=== PATIENT | female | born 1955 | race Caucasian/White ===

== ENCOUNTER → 2016-09-28 | Outpatient (CLI) | payer BC ==
[~2016-09-28] MED LIST: ARM1 PO; ASCO-63 PO; ASPI-390 PO; ATV5 PO; CHOL2000 PO; FERROUS SULFATE PO; FRN PO; IBUP-1050 PO; LEVO88TA PO; MULT-663 PO; MULTCHW PO; POLYSOL4 OPB; PSYL55.43 PO; RIZA10TA19 PO
== END | disposition home or self-care (01) ==
LOC: C.PAPS 15:10
PROVIDERS: ATTEND Obstetrics & Gynecology
DX: Z01.419 Encounter for gynecological examination (general) (routine) without abnormal findings (principal)

== ENCOUNTER → 2016-11-04 | Outpatient (CLI) | payer BC ==
[2016-11-04 16:18] LABS: COMPLETE YES; EOS % 1.8 %; HEMATOCRIT 38.7 % (37-47); LYMPH % 30.2 %; LYMPH ABS # 1.48 K/uL (1.2-3.4); MEAN CELL VOLUME 92.4 fL (80-100); MEAN CORPUSCULAR HEMOGLOBIN 31.5 pg (25-34); MEAN CORPUSCULAR HGB CONC 34.1 g/dl (32-36); MEAN PLATELET VOLUME 9.1 fL (7.4-10.4); MONO % 5.9 %; NEUT % 62.1 %; PLATELET COUNT 172 K/uL (130-400); RED BLOOD COUNT 4.19 M/uL (4.2-5.4)
[2016-11-04 16:30] LABS: BLOOD UREA NITROGEN 19 mg/dl (7-18); BUN/CREATININE RATIO 27.2 (10-20); CALCIUM 8.5 mg/dl (8.5-10.1); CARBON DIOXIDE 32 mmol/L (21-32); CHLORIDE 106 mmol/L (98-107); CREATININE 0.68 mg/dl (0.60-1.20); GLUCOSE 85 mg/dl (70-99); POTASSIUM 3.7 mmol/L (3.5-5.1); SODIUM 143 mmol/L (136-145)
[2016-11-04 16:42] LABS: FERRITIN 40.7 ng/ml (8.0-388.0); TOTAL IRON BINDING CAPACITY 268 mcg/dl (250-450)
[2016-11-04 19:53] LABS: ESTIMATED AVERAGE GLUCOSE 111 mg/dl; HA1C FLAG Normal (Normal)
== END | disposition home or self-care (01) ==
LOC: C.LABBFT 12:34
PROVIDERS: ATTEND Internal Medicine
DX: Z11.59 Encounter for screening for other viral diseases (principal); M85.80 Other specified disorders of bone density and structure, unspecified site

== ENCOUNTER → 2016-11-10 | Outpatient (CLI) | payer BC | END | disposition home or self-care (01) | LOC: C.LAB 17:37 | PROVIDERS: ATTEND Internal Medicine | DX: M85.80 Other specified disorders of bone density and structure, unspecified site (principal) ==

== ENCOUNTER → 2017-05-10 | Outpatient (CLI) | payer BC ==
[~2017-05-10] MED LIST changes: -MULTCHW PO
[2017-05-10 12:24] LABS: COMPLETE YES; EOS % 0.5 %; HEMATOCRIT 37.8 % (37-47); IG% 0.2 %; LYMPH % 21.3 %; LYMPH ABS # 0.93 K/uL (1.2-3.4); MEAN CELL VOLUME 92.6 fL (80-100); MEAN CORPUSCULAR HEMOGLOBIN 31.6 pg (25-34); MEAN CORPUSCULAR HGB CONC 34.1 g/dl (32-36); MEAN PLATELET VOLUME 8.9 fL (7.4-10.4); MONO % 5.3 %; NEUT % 72.7 %; PLATELET COUNT 169 K/uL (130-400); RED BLOOD COUNT 4.08 M/uL (4.2-5.4); WHITE BLOOD COUNT 4.37 K/uL (4.8-10.8)
[2017-05-10 12:51] LABS: CHOLESTEROL/HDL RATIO 2.6; THYROID STIMULATING HORMONE 1.51 uIu/ml (0.300-4.500)
== END | disposition home or self-care (01) ==
LOC: C.LAB1850 10:46
PROVIDERS: ATTEND Internal Medicine
DX: M85.80 Other specified disorders of bone density and structure, unspecified site (principal)

== ENCOUNTER → 2017-09-29 | Outpatient (CLI) | payer BC | END | disposition home or self-care (01) | LOC: C.PAPS 11:52 | PROVIDERS: ATTEND Obstetrics & Gynecology | DX: Z01.419 Encounter for gynecological examination (general) (routine) without abnormal findings (principal); R87.615 Unsatisfactory cytologic smear of cervix ==

== ENCOUNTER → 2018-01-19 | Outpatient (CLI) | payer BC ==
[~2018-01-19] MED LIST changes: -MULT-663 PO
== END | disposition home or self-care (01) ==
LOC: C.PAPS 13:22
PROVIDERS: ATTEND Obstetrics & Gynecology
DX: R87.615 Unsatisfactory cytologic smear of cervix (principal); N95.8 Other specified menopausal and perimenopausal disorders

== ENCOUNTER 2019-04-05 23:56 | Inpatient (IN) ==
[2019-04-06] MEDS ORDERED: MoRPHine SULFATE 4 MG/ML 1 ML CARP\\VIAL IV STA (00:20)
[2019-04-06] MEDS ORDERED: ONDANSETRON INJ 2 MG/ML 2 ML VIAL IV STA (00:20)
[2019-04-06 00:27] LABS: Basophils # (auto) 0.01 K/uL (0-0.2); Basophils % (auto) 0.1 %; Eosinophils # (auto) 0.12 K/uL (0-0.5); Eosinophils % (auto) 1.2 %; Hematocrit (blood only) 38.9 % (37-47); Hemoglobin 13.5 g/dL (12.0-16.0); Immature Granulocytes # (auto) 0.02 K/uL (0.00-0.02); Immature Granulocytes % (auto) 0.2 %; Lymphocytes # (auto) 1.48 K/uL (1.2-3.4); Lymphocytes % (auto) 14.3 %; Mean Corpuscular Hemoglobin 32.1 pg (25-34); Mean Corpuscular Hgb Conc 34.7 g/dL (32-36); Mean Corpuscular Volume 92.4 fL (80-100); Mean Platelet Volume 8.7 fL (7.4-10.4); Monocytes # (auto) 0.58 K/uL (0.11-0.59); Monocytes % (auto) 5.6 %; Neutrophils # (auto) 8.14 K/uL (1.4-6.5); Neutrophils % (auto) 78.6 %; Platelet Count 168 K/uL (130-400); RDW Coefficient of Variation 12.7 % (11.5-14.5); RDW Standard Deviation 42.8 fL (36.4-46.3); Red Blood Count 4.21 M/uL (4.2-5.4); White Blood Count 10.35 K/uL (4.8-10.8)
[2019-04-06] MEDS ORDERED: SODIUM CHLORIDE 0.9% 1000ML 1,000 ML IV SCH (00:30)
--- NOTE | 2019-04-06 00:51 | Emergency Department Note ---
History of Present Illness General Chief complaint: Abdominal Pain Stated complaint: UPPER ABD PAIN SINCE 21:00 THIS EVENING Time Seen by Provider: 04/06/19 00:11 History of Present Illness Maximum Pain Intensity: 7 This is a 63-year-old female with a pertinent past medical history for that of breast cancer, that presents to the emergency department via private vehicle accompanied by with complaints of "upper abdominal pain". The patient notes that around 7:30 PM she ate dinner, and then around 8:30 PM began with epigastric discomfort". She has never had pain quite like this before. No history of abdominal surgeries. She notes that on the way here she did vomit x1. She rates the pain as a 7/10. No alleviating factors. It is persistent. Home Medications Home Medications Medication Instructions Recorded Confirmed Type anastrozole 1 mg tablet 1 mg PO DAILY 01/24/19 04/06/19 History ascorbic acid (vitamin C) 500 mg 500 mg PO DAILY cap 01/24/19 04/06/19 History capsule cholecalciferol (vitamin D3) 2,000 2,000 units PO DAILY cap 01/24/19 04/06/19 History unit capsule levothyroxine 88 mcg tablet 88 mcg PO DAILY #90 tab 01/24/19 04/06/19 History polysaccharide iron complex 150 mg 150 mg PO AMPM #60 cap 01/24/19 04/06/19 History iron capsule rizatriptan 10 mg disintegrating 10 mg PO ONCE PRN #9 tab 01/24/19 04/06/19 History tablet zoledronic acid 5 mg/100 mL in 5 mg IV YEARLY #1 ml 01/24/19 04/06/19 History mannitol 5 %-water intravenous piggybck ghspgydazc-vnlhlgf-xbdzmbor 2 cap PO Q6 PRN 04/06/19 04/06/19 History calcium carbonate-vitamin D3 1 cap PO AMPM 04/06/19 04/06/19 History [Calcium 600 with Vitamin D3] lorazepam 1 mg PO HS PRN 04/06/19 04/06/19 History peg 400-propylene glycol (PF) 1 drp OPHTHALMIC (EYE) BID PRN 04/06/19 04/06/19 History [Systane (PF)] psyllium 1 packet PO DAILY 04/06/19 04/06/19 History Allergies Allergy/AdvReac Type Severity Reaction Status Date / Time codeine AdvReac Intermediate NAUSEA AND Verified 04/06/19 00:53 VOMITING Past Med/Surg History Medical History Anemia (Chronic) Anxiety (Chronic) Breast cancer (Chronic) Heart murmur (Chronic) Hypothyroidism (Chronic) Internal hemorrhoids (Chronic) Migraine headache (Chronic) Nontoxic multinodular goiter (Chronic) Osteopenia (Chronic) Cancer (Acute) Right breast Endocrine disorder (Acute) Thyroid disease (Acute) [place] teeth removed (Acute) Surgical History History of mastectomy (Acute) Axillary node removal History of vascular access device (Acute) Hx of breast biopsy (Acute) Social History Communication Ability: Effective Beliefs That Will Affect Care: None Current Living Situation: Spouse Other Information That Helps Us Care for You: No Feels Safe at Home: Yes Safety Concerns: Feels Safe At This Time Smoking Status: Never smoker Hx Alcohol Use: No Hx Substance Use: No Review of Systems A total of 10 systems reviewed and were otherwise negative Physical Exam Vital Signs Vital Signs - 24 hr 04/06/19 00:01 04/06/19 00:38 04/06/19 01:17 Temperature 36.8 C Temperature Source Oral Sepsis Recent Fever Within 48 Hours No Sepsis Action Taken by Nursing No Action Required Pulse Rate 93 H Pulse Rate [Finger] 78 84 Respiratory Rate 16 18 16 Respiratory Effort / Characteristics Non-Labored Accessory Muscle Use Respiratory Depth Normal Blood Pressure 172/82 H Blood Pressure [Left Arm] 145/74 H 139/60 Blood Pressure Mean 112 Blood Pressure Mean [Left Arm] 97 86 Blood Pressure Position Sitting Blood Pressure Position [Left Arm] Pulse Oximetry 97 99 97 Oxygen Delivery Method Room Air Room Air Room Air 04/06/19 02:55 04/06/19 03:15 Temperature Temperature Source Sepsis Recent Fever Within 48 Hours Sepsis Action Taken by Nursing Pulse Rate Pulse Rate [Finger] 86 96 H Respiratory Rate 16 18 Respiratory Effort / Characteristics Respiratory Depth Blood Pressure Blood Pressure [Left Arm] 141/76 H 165/85 H Blood Pressure Mean Blood Pressure Mean [Left Arm] 97 111 Blood Pressure Position Blood Pressure Position [Left Arm] Sitting Sitting Pulse Oximetry 96 97 Oxygen Delivery Method Room Air Room Air VITAL SIGNS - Vital signs and nursing notes were reviewed. Stable and afebrile. GENERAL -63-year-old female appearing her stated age who is in no acute distress. Communicates well with provider and answers questions appropriately. SKIN - Without rashes. No meningeal or petechial rash. HEAD - NC/AT. EYES - PERRL with EOMI bilaterally. Sclera anicteric. EARS - No deformities of external structures noted on gross examination bilaterally. NOSE - Midline and without cyanosis. No epistaxis or purulent drainage noted. MOUTH/OROPHARYNX - Without perioral cyanosis. NECK - Neck with FROM.No nuchal rigidity. LUNGS - Chest wall symmetric without accessory muscle use, intercostals retractions, or central cyanosis. Normal vesicular breath sounds CTA B/L. No whe ezes, rales, or rhonchi appreciated. CARDIAC - RRR with S1/S2. No murmur, rubs, or gallops appreciated. ABDOMEN - Abdominal contour normal without pulsations or visible masses. BS normoactive all four quadrants. There is epigastric abdominal tenderness to examination with palpation. No palpable masses, hepatosplenomegaly, or ascites noted. EXTREMITIES - No clubbing or peripheral cyanosis. No pretibial edema present. +5/5 strength noted in UE/LE bilaterally. NEUROLOGIC - Cranial nerves II through XII grossly intact. PSYCH - A&O and cooperates fully with examiner. Pt is very pleasant and int eracts well with examiner. Course Administered Medications Lactated Ringer's (Lr) 1,000 mls @ 125 mls/hr IV .Q8H POLLO Stop: 05/06/19 04:51 Last Infusion: 04/06/19 06:32 Dose: 125 mls/hr Documented by: [id number] Admin: 04/06/19 05:18 Dose: 125 mls/hr Documented by: [id number] Potassium Chloride (K Arnaldo / Wtr) 10 meq in 100 mls @ 100 mls/hr IV Q1H POLLO Stop: 04/06/19 08:51 Last Admin: 04/06/19 07:26 Dose: 100 mls/hr Documented by: [id number] Infusion: 04/06/19 07:20 Dose: 100 mls/hr Documented by: [id number] Admin: 04/06/19 06:20 Dose: 100 mls/hr Documented by: [id number] Infusion: 04/06/19 06:17 Dose: 100 mls/hr Documented by: [id number] Admin: 04/06/19 05:17 Dose: 100 mls/hr Documented by: [id number] Discontinued Medications Sodium Chloride (Nss 1000ml) 1,000 mls @ 999 mls/hr IV .Q1H1M POLLO Stop: 04/06/19 01:30 Last Infusion: 04/06/19 01:38 Dose: 0 mls/hr Documented by: [id number] Admin: 04/06/19 00:34 Dose: 999 mls/hr Documented by: [id number] Ioversol (Optiray 320 100ml) 93 ml IV ONCE PRN PRN Reason: Interaction Checking Stop: 04/10/19 02:17 Last Admin: 04/06/19 02:18 Dose: 93 ml Documented by: [id number] Morphine Sulfate (Morphine Sulfate) 4 mg IV NOW STA Stop: 04/06/19 00:21 Last Admin: 04/06/19 00:32 Dose: 4 mg Documented by: [id number] Morphine Sulfate (Morphine Sulfate) 2 mg IV NOW STA Stop: 04/06/19 02:20 Last Admin: 04/06/19 02:24 Dose: 2 mg Documented by: [id number] Ondansetron HCl (Zofran) 4 mg IV NOW STA Stop: 04/06/19 00:21 Last Admin: 04/06/19 00:32 Dose: 4 mg Documented by: [id number] Medical Decision Making Laboratory Data Result diagrams: 04/06/19 00:17 04/06/19 00:17 Lab Results 04/06/19 04/06/19 Range/Units 00:17 00:17 WBC 10.35 (4.8-10.8) K/uL RBC 4.21 (4.2-5.4) M/uL Hgb 13.5 (12.0-16.0) g/dL Hct 38.9 (37-47) % MCV 92.4 (80-100) fL MCH 32.1 (25-34) pg MCHC 34.7 (32-36) g/dL RDW Std Deviation 42.8 (36.4-46.3) fL RDW Coeff of Sammie 12.7 (11.5-14.5) % Plt Count 168 (130-400) K/uL MPV 8.7 (7.4-10.4) fL Immature Gran % (Auto) 0.2 % Neut % (Auto) 78.6 % Lymph % (Auto) 14.3 % [place] % (Auto) 5.6 % Eos % (Auto) 1.2 % Baso % (Auto) 0.1 % Immature Gran # (Auto) 0.02 (0.00-0.02) K/uL Neut # (Auto) 8.14 H (1.4-6.5) K/uL Lymph # (Auto) 1.48 (1.2-3.4) K/uL [place] # (Auto) 0.58 (0.11-0.59) K/uL Eos # (Auto) 0.12 (0-0.5) K/uL Baso # (Auto) 0.01 (0-0.2) K/uL Sodium 140 (136-145) mmol/L Potassium 3.3 L (3.5-5.1) mmol/L Chloride 104 (98-107) mmol/L Carbon Dioxide 31 (21-32) mmol/L Anion Gap 5.0 (3-11) BUN 24 H (7-18) mg/dl Creatinine 0.78 (0.6-1.2) mg/dl Est Cr Clr Drug Dosing 73.6 ml/min Est GFR ( Amer) 94.4 Est GFR (Non-Af Amer) 81.5 BUN/Creatinine Ratio 30.5 H (10-20) Glucose 131 H (70-99) mg/dl Calcium 9.3 (8.5-10.1) mg/dl Magnesium 2.2 (1.8-2.4) mg/dl Total Bilirubin 0.3 (0.2-1) mg/dl AST 11 L (15-37) U/L ALT 20 (12-78) U/L Alkaline Phosphatase 78 (45-117) U/L Total Protein 7.4 (6.4-8.2) gm/dl Albumin 3.9 (3.4-5.0) gm/dl Globulin 3.5 (2.5-4.0) gm/dl Albumin/Globulin Ratio 1.1 (0.9-2) Lipase 60 L (73-393) U/L Imaging Data Radiologist's Impression: US GALLBLADDER: Small amount of pericholecystic fluid. This is nonspecific given the otherwise unremarkable appearance of the gallbladder and absence of gallstones. No hydronephrosis. Multiple foci of hyperechogenicity and twinkling artifact within the right kidney measuring up to 4 mm, most consistent with kidney stones. Normal diameter of the common bile duct measuring 0.5 cm. Radiologist: Paulo Hernandez MD Study ready at 01:22 and initial results transmitted at 01:35 CT ABDOMEN & PELVIS With Contrast: Borderline dilated loops of fluid-filled small bowel measuring up to 2.7 cm involving the mid to distal small bowel with associated mesenteric edema sugge stive of partial or early complete small bowel obstruction. Normal appendix. Bony defect of the femoral head, possibly sequela of remote avascular necrosis.. Mild degenerative changes of the right greater than left hip. Multiple subcentimeter hypodensities in the right kidney too small to charact erize further but statistically likely represent simple cysts. Degenerative changes lumbar spine. Radiologist: Paulo Hernandez MD Study ready at 02:19 and initial results transmitted at 02:39 [facility] Narrative Patient was seen and evaluated as above in room B11. Review was performed of nursing notes and vital signs. After obtaining a thorough history and physical examination the above work up was performed. She presents to us today with epigastric abdominal discomfort. She has tenderness on exam in the epigastric region. Ultrasound was obtained of the gallbladder and was negative. IV access was established. She was given fluids, Zofran and morphine. She was reevaluated with tremendous improvement. CT scan was obtained and there is a small bowel obstruction. NG tube placed. She will be admitted for further ev aluation and management. Please refer to further documentation regarding her stay. CBC reveals no leukocytosis or anemia. Mild hypokalemia at 3.3. No other emergent metabolic disturbance. No evidence of UTI. In the evaluation and treatment of this patient, the following differential diagnoses were considered: ASC, AR, Pneumonia, GERD, Cholecystitis, Ascending Cholangitis, Cholydocholithiasis, Bowel Obstruction, PE, Amongst Others. Impression & Plan Small bowel obstruction, Abdominal pain Discharge Plan Visit Data *Final* Discharge Date/Time: 04/06/19 04:33 Chief Complaint: Abdominal Pain Stated Complaint: UPPER ABD PAIN SINCE 21:00 THIS EVENING ED Provider: Adalberto Sam ED Midlevel Provider: Romain Joseph Discharge Problem: Small bowel obstruction, Abdominal pain Patient Disposition: Admitted As Inpatient Condition: Good Discharge Instructions Interventions: ED Discharge Assessment Last Done: 04/06/19 04:33
[2019-04-06 00:53] LABS: Albumin Level 3.9 gm/dl (3.4-5.0); BUN Creatinine Ratio 30.5 (10-20); Calcium 9.3 mg/dl (8.5-10.1); Creatinine Clr Calc Pharmacy 73.6 ml/min; Est GFR (African American) 94.4; Est GFR (Non-African American) 81.5; Magnesium 2.2 mg/dl (1.8-2.4); Potassium 3.3 mmol/L (3.5-5.1)
[2019-04-06 00:54] LABS: Appearance Urine Clear (Clear); Bacteria Urine Automated Negative (Negative); Bilirubin Urine Negative (Negative); Blood Urine Negative (Negative); Color Urine Yellow; Epithelial Cell Urine Auto 20-30 /lpf (0-5); Glucose Urine UA Negative (Negative); Ketones Urine Trace (Negative); Leukocyte Esterase Urine Trace (Negative); Nitrite Urine Negative (Negative); RBC Urine Automated 0-4 /hpf (0-4); Specific Gravity Urine 1.026 (1.000-1.030); Urobilinogen Urine Negative (Negative); pH Urine >= 9.0 (4.5-7.5)
[2019-04-06 00:56] LABS: Albumin Globulin Ratio 1.1 (0.9-2); Bilirubin,Total 0.3 mg/dl (0.2-1); Globulin 3.5 gm/dl (2.5-4.0); Total Protein 7.4 gm/dl (6.4-8.2)
[2019-04-06 00:56] LABS: Protein Urine Negative (Negative); Sulfosalicylic Acid Urine Negative (Negative)
[2019-04-06] MEDS ORDERED: IOVERSOL 100ml IV PRN (02:18)
[2019-04-06] MEDS ORDERED: MoRPHine SULFATE 2 MG/ML CARP IV STA (02:19)
--- NOTE | 2019-04-06 03:28 | History & Physical Report ---
Date of Service April 06, 2019 Assessment & Plan (1) Small bowel obstruction: 63 year old woman with history of breast cancer here for one night of abdominal pain Small Bowel Obstruction CT with finding described above Non acute abdomen, no peritonitic signs, no fever, no elevated white count NG tube placed on low intermittent suction NPO Surgery consulted Dr. Kruse IV zofran, IV Tylenol, IV morphine and IV famotidine Patient comfortable at present, admitting for serial abdominal exams and supportive care for now In this patient with no history of abdominal surgery, no previous history of bowel obstruction, no opiate use, no other risk factors must be suspicious for malignancy though patient denies any history of chronic concerning symptoms (fatigue, weight loss, other GI symptoms) Hypothyroidism, migraines, Breast Cancer Holding home medications for now Will restart anastrozole, levothyroxine when obstruction relieved F/E/N: NPO, NG tube low intermittent suction DVT PPx: SCD's Dispo: Med Surg pending surgery consult and hopeful spontaneous resolution of symptoms (2) Abdominal pain: (3) Anemia: (4) Anxiety: (5) Breast cancer: (6) Hypothyroidism: (7) Migraine headache: History of Present Illness Chief Complaint: Abdominal Pain Primary Care Provider: Lonnie Maya MD Ms. West is a very pleasant 63 year old female with a past medical history of breast cancer, hypothyroidism, and osteopenia. She presents today for about 6 hours of abdominal pain following dinner. Patient had a meal around 7:30 regular meal for her fish sweet potatoes and carrots started to have a pain in upper abdomen about forty five minutes after her meal. It was a burning pain that she was not familiar with. Went upstairs to lay down took some mylanta didn't improve. Tried to move around and it was not improved. Oscillated in intensity from bad to worse. Had one episode vomiting when she got to the emergency department nothing previously. Had a small amount of water and two ounces of mylanta pain did not resolve. Presented to emergency department with . Vital signs stable throughout, initial labwork with no major abnormalities, slightly hypokalemic elevated BUN/Creatinine ratio. Initial concern was for Cholecystitis, RUQ ultrasound showed nonspecific pericholecystic fluid, Abdominal CT was then performed which showed evidence of a partial or early complete small bowel obstruction. Patient had an NG tube placed and was given morphine for pain. She is currently much more comfortable and we have been consulted to see her for admission. Patient had breast cancer in 2008, otherwise healthy, family history of colon cancer, she has colonoscopies every five years Had one benign polyp in the last colonoscopy. Anastrozole for ten years, finishes in June. Prescribed by Dr. Roche and Dr. Erika Aguirre in [place]. Patient occasionally gets constipation drinks metamucil every day, tries to eat high fiver cereal at breakfast. Has not been dealing with constipation recently, normal bowel function, no other concerning symptoms or recent illness. Allergies Allergy/AdvReac Type Severity Reaction Status Date / Time codeine AdvReac Intermediate NAUSEA AND Verified 04/06/19 00:53 VOMITING Home Medications Home Medications Medication Instructions Recorded Confirmed Type anastrozole 1 mg tablet 1 mg PO DAILY 01/24/19 04/06/19 History ascorbic acid (vitamin C) 500 mg 500 mg PO DAILY cap 01/24/19 04/06/19 History capsule cholecalciferol (vitamin D3) 2,000 2,000 units PO DAILY cap 01/24/19 04/06/19 History unit capsule levothyroxine 88 mcg tablet 88 mcg PO DAILY #90 tab 01/24/19 04/06/19 History polysaccharide iron complex 150 mg 150 mg PO AMPM #60 cap 01/24/19 04/06/19 History iron capsule rizatriptan 10 mg disintegrating 10 mg PO ONCE PRN #9 tab 01/24/19 04/06/19 History tablet zoledronic acid 5 mg/100 mL in 5 mg IV YEARLY #1 ml 01/24/19 04/06/19 History mannitol 5 %-water intravenous piggybck vzksmjccse-yobnesy-tmezqhnr 2 cap PO Q6 PRN 04/06/19 04/06/19 History calcium carbonate-vitamin D3 1 cap PO AMPM 04/06/19 04/06/19 History [Calcium 600 with Vitamin D3] lorazepam 1 mg PO HS PRN 04/06/19 04/06/19 History peg 400-propylene glycol (PF) 1 drp OPHTHALMIC (EYE) BID PRN 04/06/19 04/06/19 History [Systane (PF)] psyllium 1 packet PO DAILY 04/06/19 04/06/19 History Past Med/Surg History Medical History Anemia (Chronic) Anxiety (Chronic) Breast cancer (Chronic) Heart murmur (Chronic) Hypothyroidism (Chronic) Internal hemorrhoids (Chronic) Migraine headache (Chronic) Nontoxic multinodular goiter (Chronic) Osteopenia (Chronic) Cancer (Acute) Right breast Endocrine disorder (Acute) Thyroid disease (Acute) [place] teeth removed (Acute) Surgical History History of mastectomy (Acute) Axillary node removal History of vascular access device (Acute) Hx of breast biopsy (Acute) Social History Communication Ability: Effective Beliefs That Will Affect Care: None Current Living Situation: Spouse Other Information That Helps Us Care for You: No Feels Safe at Home: Yes Safety Concerns: Feels Safe At This Time Smoking Status: Never smoker Hx Alcohol Use: No Hx Substance Use: No Review of Systems Constitutional: no fever, no chills, no fatigue, no weakness, no anorexia and no weight loss Eyes: no problem reported Ear, Nose, Mouth, Throat: no problem reported Respiratory: no cough, no dyspnea and no wheezing Cardiovascular: no chest pain, no dyspnea, no palpitations, no lightheadedness, no syncope and no calf pain Gastrointestinal: + abdominal pain, + nausea and + vomiting; no coffee ground emesis, no hematemesis, no change in bowel habits, no blood in stools and no melena Physical Exam Physical Exam: Constitutional: 61-year-old woman appearing stated age in no apparent distress with NG tube in place communicating easily Eyes: Anicteric sclerae extraocular muscle movements intact bilaterally, pupils equal round reactive to light bilaterally ENMT: No abnormalities detected Neck supple no masses no lymph nodes palpable Respiratory: Chest expansion symmetric, lung sounds vesicular in all lung garcia, no wheezes rhonchi or rails Cardiovascular:Regular rate and rhythm, Heart sounds dual, no murmurs rubs skips or gallops, no lower limb edema GI: Epigastric abdominal tenderness, abdomen appears swollen and distended, pain is mild, no peritoneal signs, abdomen soft Skin: No abnormalities detected Results & Data Vital Signs (Past 12 Hours) Vital Signs Temp Pulse Pulse Resp BP BP Pulse Ox 04/06/19 03:15 96 H 18 165/85 H 97 04/06/19 02:55 86 16 141/76 H 96 04/06/19 01:17 84 16 139/60 97 04/06/19 00:38 78 18 145/74 H 99 04/06/19 00:01 36.8 C 93 H 16 172/82 H 97 RUQ US: Small amount of pericholecystic fluid, otherwise unremakrable CT abdomen/pelvis: BOrderline dilated loops of small bowel measuring up to two point seven cm involving the mid to distal small bowel with associated mesenteric edema suggestive of partial or early complete small bowel obstruction. Code Status & VTE Plan Code Status Full VTE Prophylaxis Plan VTE Prophylaxis will be ordered: Yes Reason for no VTE drug order: Contraindicated Supervising Physician Co-Signing Physician Notes Attending addendum: I have physically seen this patient, have supervised the medical residents activities, and agree with the H&P unless as otherwise noted. Assessment and Plan: Small Bowel Obstruction- Admit to medical surgical floor. NPO except meds. NGT to LIS. Zofran 4mg IV q6h prn famotidine 20mg IV q12h. Acetaminophen 1g IV q8h PRN mild pain or temp Morphine 1-2mg IV q4h prn. IVF's Consult General Surgery Dr. Kruse. Remainder of orders and notations as noted. PG Care Time/CCT Total # of Minutes Spent Total Time Spent with Patient: Total time spent is greater than 50% in coordination of care (as documented) at patient's floor/unit and/or counseling patient: Resident Activity Tracking Resident Involvement: Resident Care Provided Care Provided: Adult Hospital Medicine
[2019-04-06] MEDS ORDERED: ONDANSETRON INJ 2 MG/ML 2 ML VIAL IV PRN (04:52)
[2019-04-06] MEDS ORDERED: MoRPHine SULFATE 2 MG/ML CARP IV PRN (04:52)
[2019-04-06] MEDS: POTASSIUM CHLORIDE / WTR 10 MEQ/100 ML PLCT IV SCH ×4 (05:17→08:38)
[2019-04-06] MEDS: LACTATED RINGER'S 1,000 ML IV SCH ×3 (05:18→20:48)
--- NOTE | 2019-04-06 06:33 | Ultrasound Report ---
US gallbladder HISTORY: 63 years-old Female RUQ/epigastric abd pain acute right upper quadrant abdominal pain COMPARISON: CT abdomen and pelvis of same day TECHNIQUE: Multiple real-time sonographic images of the abdominal right upper quadrant were obtained assessing grayscale appearance and color flow FINDINGS: Visualized pancreas is unremarkable. The liver is within normal limits. No focal hepatic mass lesion or intrahepatic biliary ductal dilation. Trace layering gallbladder sludge without wall thickening, o r cholelithiasis. Nonspecific trace pericholecystic fluid. Normal common bile duct, 5 mm. Nonobstruct ing calculi of the right kidney measure up to 4 mm. IMPRESSION: 1. No cholelithiasis or gallbladder wall thickening. 2. Trace pericholecystic fluid is likely related to the small bowel findings described on CT abdomen and pelvis study of same day. 3. No biliary ductal dilation. 4. Nonobstructing right nephrolithiasis. The above report was generated using voice recognition software. It may contain grammatical, syntax o r spelling errors. Electronically signed by: Holden Rachel M.D. 04/06/2019 6:32 AM
--- NOTE | 2019-04-06 08:09 | CT Scan Report ---
ABDOMEN AND PELVIS CT WITH IV CONTRAST CT DOSE: 409.16 mGy.cm HISTORY: Acute generalized abdominal pain with history of breast cancer Upper abdominal pain TECHNIQUE: Multiaxial CT images of the abdomen and pelvis were performed following the IV administrat ion of 93 cc of Optiray 320, A dose lowering technique was utilized adhering to the principles of AL JAZMINE. COMPARISON STUDY: Right upper quadrant ultrasound of same day, chest CT 03/11/2009 FINDINGS: 11 x 7 mm partially imaged nodular density of the medial right lung base on image 1 series 3 is sugge stive of a probable lymph node and has mildly increased in size from comparison. Mild bibasilar atele ctasis. There is no pneumatosis or pneumoperitoneum. Imaged inferior cardiac chambers are mildly enla rged. Mild gallbladder distention without cholelithiasis. Liver, spleen, pancreas and adrenal glands appear unremarkable. There are a few subcentimeter hypodense foci of the kidneys suggestive of probable cys ts. No ureteral calculi or obstructive uropathy. Unremarkable urinary bladder. Uterus and adnexa are unremarkable. Multiple phleboliths of the pelvis. Aorta and IVC are within normal limits. There are several air and fluid-filled dilated and prominent loops of small bowel within the abdomen and pelvis measuring up to 2.6 cm transversely. No discrete transition point identified. Mild associa jaziel intraluminal edema with trace abdominal pelvic ascites. Moderate fecal retention. Air-filled ronna nflamed appearing appendix. Soft tissues are unremarkable. Subcortical cystic changes with possible r emote AVN of the right femoral head. Degenerative changes of the hips, pelvis and spine. No suspiciou s lytic or blastic bony lesions are identified. Ill-defined sclerosis of the left iliac bone is likel y benign. IMPRESSION: 1. Multiple dilated and prominent air and fluid-filled loops of small bowel throughout the abdomen an d pelvis without transition point identified is suggestive of low-grade small bowel obstruction with enteritis or ileus also in the differential. Close follow-up is needed. 2. Mild reactive mesenteric edema with trace abdominopelvic ascites. 3. No pneumatosis or pneumoperitoneum. 4. Moderate fecal retention. 5. Noninflamed appendix. Electronically signed by: Holden Rachel M.D. 04/06/2019 8:07 AM
[2019-04-06] MEDS ORDERED: INFLUENZA ADMINISTRATION CHARGE ONE (09:15)
[2019-04-06] MEDS ORDERED: INFLUENZA VIRUS QUAD VACCINE 0.5 ML SYR IM ONE (09:15)
[2019-04-06] MEDS: FAMOTIDINE 20 MG in SYRINGE 3 ML IV SCH ×2 (09:23→20:48)
--- NOTE | 2019-04-06 09:45 | History & Physical Bridge Note ---
Date of Service April 06, 2019 History & Physical Bridge Note I have examined the patient, reviewed the History & Physical and in the interval since the performance of the History & Physical I have noted the following changes of clinical significance: no changes noted Ms West denies any further nausea or abdominal pain though she is a bit tender to palpation but without guarding. She is afebrile. Passing gas, no bowel movement. She otherwise has no complaints. NG tube is in to LIS with small amount of output. Awaiting surgical consult. - continue NG until seen by surgery - pain control with morphine and IV acetaminophen - continue IV famotidine and LR
[2019-04-06] MEDS: ACETAMINOPHEN 1,000 MG/100 ML VIAL IV PRN (10:56)
[2019-04-06] MEDS ORDERED: BUTALBITAL/ASPIRIN/CAFFEINE 1 TAB TAB PO PRN (15:53)
[2019-04-06] MEDS ORDERED: RIZATRIPTAN BENZOATE MLT 10 MG TAB SL PRN (15:53)
[2019-04-06] MEDS ORDERED: PROMETHAZINE HCL 12.5 MG in SODIUM CHLORIDE 0.9% 50 ML IV ONE (16:00)
--- NOTE | 2019-04-06 17:42 | Surgery Consultation ---
Date of Consultation April 06, 2019 Assessment & Plan (1) Abdominal pain: I reviewed the patient's CT images as well as the report. Her history is more consistent with enteritis. There is diffuse small bowel dilatation with no transition point. That is more consistent with enteritis versus ileus. She is passing small amounts of flatus even today. I would continue the NG for now. Would continue with conservative measures. She has no evidence of peritonitis. There is no need for immediate surgical intervention. History of Present Illness Reason for Consultation: Abdominal pain nausea and vomiting Requesting Physician: Aurelio Grimes MD Attending Physician: Aurelio Grimes MD History of Present Illness I been asked by Dr. Grimes to see this 63-year-old female who presented to the emergency room with a complaint of abdominal pain with nausea and vomiting. The patient states that she ate fish with carrots and sweet potato last night at about 7:00 and 2 hours later developed pain centered mostly in the upper abdomen with no side predominating. It was a dull ache that was quite severe with occasional increases in intensity to a sharp character. She had never had pain like this before. She had no nausea or vomiting until she arrived in the e mergency room. She had no fever or chills. She is not sure if she had a bowel movement yesterday but she is sure that she had a normal bowel movement the day before. She is passing small amounts of flatus even today. She had no fever or chills. She has never had previous abdominal surgery. Allergies Allergy/AdvReac Type Severity Reaction Status Date / Time codeine AdvReac Intermediate NAUSEA AND Verified 04/06/19 00:53 VOMITING Home Medications Home Medications Medication Instructions Recorded Confirmed Type anastrozole 1 mg tablet 1 mg PO DAILY 01/24/19 04/06/19 History ascorbic acid (vitamin C) 500 mg 500 mg PO DAILY cap 01/24/19 04/06/19 History capsule cholecalciferol (vitamin D3) 2,000 2,000 units PO DAILY cap 01/24/19 04/06/19 History unit capsule levothyroxine 88 mcg tablet 88 mcg PO DAILY #90 tab 01/24/19 04/06/19 History polysaccharide iron complex 150 mg 150 mg PO AMPM #60 cap 01/24/19 04/06/19 History iron capsule rizatriptan 10 mg disintegrating 10 mg PO ONCE PRN #9 tab 01/24/19 04/06/19 History tablet zoledronic acid 5 mg/100 mL in 5 mg IV YEARLY #1 ml 01/24/19 04/06/19 History mannitol 5 %-water intravenous piggybck iaeqknqrqr-yoyfsby-qkaoltei 2 cap PO Q6 PRN 04/06/19 04/06/19 History calcium carbonate-vitamin D3 1 cap PO AMPM 04/06/19 04/06/19 History [Calcium 600 with Vitamin D3] lorazepam 1 mg PO HS PRN 04/06/19 04/06/19 History peg 400-propylene glycol (PF) 1 drp OPHTHALMIC (EYE) BID PRN 04/06/19 04/06/19 History [Systane (PF)] psyllium 1 packet PO DAILY 04/06/19 04/06/19 History Patient History Medical History Anemia (Chronic) Anxiety (Chronic) Breast cancer (Chronic) Heart murmur (Chronic) Hypothyroidism (Chronic) Internal hemorrhoids (Chronic) Migraine headache (Chronic) Nontoxic multinodular goiter (Chronic) Osteopenia (Chronic) Cancer (Acute) Right breast Endocrine disorder (Acute) Thyroid disease (Acute) [place] teeth removed (Acute) Surgical History History of mastectomy (Acute) Axillary node removal History of vascular access device (Acute) Hx of breast biopsy (Acute) Social History Communication Ability: Effective Beliefs That Will Affect Care: None Current Living Situation: Spouse Other Information That Helps Us Care for You: No Feels Safe at Home: Yes Safety Concerns: Feels Safe At This Time Smoking Status: Never smoker Hx Alcohol Use: No Hx Substance Use: No Review of Systems Review of Systems: All systems reviewed & are unremarkable except as noted in HPI & below Physical Exam Constitutional: no acute distress Neck: trachea midline Respiratory: normal respiratory effort, lungs clear to auscultation Cardiovascular: Rate/Rhythm: regular rate and regular rhythm Gastrointestinal (Abdomen): Inspection/Auscultation: abdomen not distended Percussion/Palpation: abdomen soft; abdomen nontender Bowel sounds normal pitch but decreased in amount Skin: no rashes, warm and dry Lymphatic: no cervical lymphadenopathy Results & Data Vital Signs (Past 12 Hours) Vital Signs Temp Pulse Resp BP Pulse Ox 04/06/19 15:04 37.3 C 90 16 156/76 H 98 04/06/19 11:37 37.1 C 94 H 18 143/72 H 96 04/06/19 07:34 37.1 C 78 18 137/72 99 Laboratory Results 04/06/19 04/06/19 04/06/19 Range/Units Unknown 00:17 00:17 WBC 10.35 (4.8-10.8) K/uL RBC 4.21 (4.2-5.4) M/uL Hgb 13.5 (12.0-16.0) g/dL Hct 38.9 (37-47) % MCV 92.4 (80-100) fL MCH 32.1 (25-34) pg MCHC 34.7 (32-36) g/dL RDW Std Deviation 42.8 (36.4-46.3) fL RDW Coeff of Sammie 12.7 (11.5-14.5) % Plt Count 168 (130-400) K/uL MPV 8.7 (7.4-10.4) fL Immature Gran % (Auto) 0.2 % Neut % (Auto) 78.6 % Lymph % (Auto) 14.3 % [place] % (Auto) 5.6 % Eos % (Auto) 1.2 % Baso % (Auto) 0.1 % Immature Gran # (Auto) 0.02 (0.00-0.02) K/uL Neut # (Auto) 8.14 H (1.4-6.5) K/uL Lymph # (Auto) 1.48 (1.2-3.4) K/uL [place] # (Auto) 0.58 (0.11-0.59) K/uL Eos # (Auto) 0.12 (0-0.5) K/uL Baso # (Auto) 0.01 (0-0.2) K/uL Sodium 140 (136-145) mmol/L Potassium 3.3 L (3.5-5.1) mmol/L Chloride 104 (98-107) mmol/L Carbon Dioxide 31 (21-32) mmol/L Anion Gap 5.0 (3-11) BUN 24 H (7-18) mg/dl Creatinine 0.78 (0.6-1.2) mg/dl Est Cr Clr Drug Dosing 73.6 ml/min Est GFR ( Amer) 94.4 Est GFR (Non-Af Amer) 81.5 BUN/Creatinine Ratio 30.5 H (10-20) Glucose 131 H (70-99) mg/dl Calcium 9.3 (8.5-10.1) mg/dl Magnesium 2.2 (1.8-2.4) mg/dl Total Bilirubin 0.3 (0.2-1) mg/dl AST 11 L (15-37) U/L ALT 20 (12-78) U/L Alkaline Phosphatase 78 (45-117) U/L Total Protein 7.4 (6.4-8.2) gm/dl Albumin 3.9 (3.4-5.0) gm/dl Globulin 3.5 (2.5-4.0) gm/dl Albumin/Globulin Ratio 1.1 (0.9-2) Lipase 60 L (73-393) U/L Urine Color Yellow Urine Appearance Clear (Clear) Urine pH >= 9.0 H (4.5-7.5) Ur Specific [place] 1.026 (1.000-1.030) Urine Protein Negative (Negative) Urine Glucose (UA) Negative (Negative) Urine Ketones Trace H (Negative) Urine Blood Negative (Negative) Urine Nitrite Negative (Negative) Urine Bilirubin Negative (Negative) Urine Urobilinogen Negative (Negative) Ur Leukocyte Esterase Trace H (Negative) Urine WBC (Auto) 1-5 (0-5) /hpf Urine RBC (Auto) 0-4 (0-4) /hpf U Hyaline Cast (Auto) 1-5 (0-5) /lpf U Epithel Cells (Auto) 20-30 H (0-5) /lpf Urine Bacteria (Auto) Negative (Negative) Diagnostic Findings US gallbladder HISTORY: 63 years-old Female RUQ/epigastric abd pain acute right upper quadrant abdominal pain COMPARISON: CT abdomen and pelvis of same day TECHNIQUE: Multiple real-time sonographic images of the abdominal right upper quadrant were obtained assessing grayscale appearance and color flow FINDINGS: Visualized pancreas is unremarkable. The liver is within normal limits. No focal hepatic mass lesion or intrahepatic biliary ductal dilation. Trace layering gallbladder sludge without wall thickening, or cholelithiasis. Nonspecific trace pericholecystic fluid. Normal common bile duct, 5 mm. Nonobstructing calculi of the right kidney measure up to 4 mm. IMPRESSION: 1. No cholelithiasis or gallbladder wall thickening. 2. Trace pericholecystic fluid is likely related to the small bowel findings described on CT abdomen and pelvis study of same day. 3. No biliary ductal dilation. 4. Nonobstructing right nephrolithiasis. ABDOMEN AND PELVIS CT WITH IV CONTRAST CT DOSE: 409.16 mGy.cm HISTORY: Acute generalized abdominal pain with history of breast cancer Upper abdominal pain TECHNIQUE: Multiaxial CT images of the abdomen and pelvis were performed following the IV administration of 93 cc of Optiray 320, A dose lowering technique was utilized adhering to the principles of ALARA. COMPARISON STUDY: Right upper quadrant ultrasound of same day, chest CT 03/11/2009 FINDINGS: 11 x 7 mm partially imaged nodular density of the medial right lung base on image 1 series 3 is suggestive of a probable lymph node and has mildly increased in size from comparison. Mild bibasilar atelectasis. There is no pneumatosis or pneumoperitoneum. Imaged inferior cardiac chambers are mildly enlarged. Mild gallbladder distention without cholelithiasis. Liver, spleen, pancreas and adrenal glands appear unremarkable. There are a few subcentimeter hypodense foci of the kidneys suggestive of probable cysts. No ureteral calculi or obstructive uropathy. Unremarkable urinary bladder. Uterus and adnexa are unremarkable. Multiple phleboliths of the pelvis. Aorta and IVC are within normal limits. There are several air and fluid-filled dilated and prominent loops of small bowel within the abdomen and pelvis measuring up to 2.6 cm transversely. No discrete transition point identified. Mild associated intraluminal edema with trace abdominal pelvic ascites. Moderate fecal retention. Air-filled noninflamed appearing appendix. Soft tissues are unremarkable. Subcortical cystic changes with possible remote AVN of the right femoral head. Degenerative changes of the hips, pelvis and spine. No suspicious lytic or blastic bony lesions are identified. Ill-defined sclerosis of the left iliac bone is likely benign. IMPRESSION: 1. Multiple dilated and prominent air and fluid-filled loops of small bowel throughout the abdomen and pelvis without transition point identified is suggestive of low-grade small bowel obstruction with enteritis or ileus also in the differential. Close follow-up is needed. 2. Mild reactive mesenteric edema with trace abdominopelvic ascites. 3. No pneumatosis or pneumoperitoneum. 4. Moderate fecal retention. 5. Noninflamed appendix.
[2019-04-07] MEDS ORDERED: HEPARIN 100 UNIT/ML 5ML FLUSH FLUSH PRN (00:13)
[2019-04-07] MEDS: LACTATED RINGER'S 1,000 ML IV SCH ×3 (03:18→18:58)
[2019-04-07] MEDS: ACETAMINOPHEN 1,000 MG/100 ML VIAL IV PRN (05:01)
[2019-04-07 06:15] LABS: Basophils # (auto) 0.01 K/uL (0-0.2); Basophils % (auto) 0.1 %; Eosinophils # (auto) 0.02 K/uL (0-0.5); Eosinophils % (auto) 0.2 %; Hematocrit (blood only) 35.9 % (37-47); Hemoglobin 12.2 g/dL (12.0-16.0); Immature Granulocytes # (auto) 0.03 K/uL (0.00-0.02); Immature Granulocytes % (auto) 0.4 %; Lymphocytes # (auto) 1.53 K/uL (1.2-3.4); Lymphocytes % (auto) 18.5 %; Mean Corpuscular Hemoglobin 31.9 pg (25-34); Monocytes # (auto) 0.67 K/uL (0.11-0.59); Monocytes % (auto) 8.1 %; Neutrophils # (auto) 6.01 K/uL (1.4-6.5); Neutrophils % (auto) 72.7 %; Platelet Count 164 K/uL (130-400); RDW Coefficient of Variation 12.6 % (11.5-14.5); RDW Standard Deviation 43.5 fL (36.4-46.3); Red Blood Count 3.82 M/uL (4.2-5.4); White Blood Count 8.27 K/uL (4.8-10.8)
[2019-04-07 06:54] LABS: BUN Creatinine Ratio 13.9 (10-20); Calcium 8.4 mg/dl (8.5-10.1); Creatinine Clr Calc Pharmacy 89.3 ml/min; Est GFR (African American) 110.8; Est GFR (Non-African American) 95.6; Potassium 3.3 mmol/L (3.5-5.1)
[2019-04-07] MEDS: FAMOTIDINE 20 MG in SYRINGE 3 ML IV SCH ×2 (09:00→20:47)
--- NOTE | 2019-04-07 09:19 | Surgery Progress Note ---
Date of Service April 07, 2019 Assessment & Plan (1) Abdominal pain: Likely more of an enteritis/ileus than SBO now passing flatus and + hard fromed bowel movement CT scan with fecal load Plan: Discontinue NGT sips of clears, advised pt to go slow ambulate in hallway continue medical management may need to consider bowel regimen as patient states she has to take fiber daily to have bowel movement and hasn't taken in a while. Will see how she does without NGT prior to starting bowel regimen Dr. Kruse has seen and examined pt, agrees with above. Supervising Physician Co-Signing Physician Notes I interviewed and examined this patient I agree with the above note. She has begun to have bowel movements and is passing flatus. NG tube will be removed and she can start on sips of clear liquids Subjective feeling better today had bowel movement, hard formed and passing flatus no abdominal pain no n/v Physical Exam Constitutional: WD/WN, vitals as above no acute distress Gastrointestinal (Abdomen): Inspection/Auscultation: normal bowel sounds; abdomen not distended Percussion/Palpation: abdomen soft; abdomen nontender, no guarding and abdomen not rigid Skin: no rashes, warm and dry Psychiatric: A+Ox3, euthymic affect Results & Data Vital Signs (Past 12 Hours) Vital Signs Temp Pulse Resp BP Pulse Ox 04/07/19 07:28 37.2 C 04/07/19 07:22 38 C H 104 H 16 146/72 H 96 04/06/19 22:50 37.5 C 101 H 16 153/72 H 95 Laboratory Results 04/07/19 04/07/19 Range/Units 05:36 05:36 WBC 8.27 (4.8-10.8) K/uL RBC 3.82 L (4.2-5.4) M/uL Hgb 12.2 (12.0-16.0) g/dL Hct 35.9 L (37-47) % MCV 94.0 (80-100) fL MCH 31.9 (25-34) pg MCHC 34.0 (32-36) g/dL RDW Std Deviation 43.5 (36.4-46.3) fL RDW Coeff of Sammie 12.6 (11.5-14.5) % Plt Count 164 (130-400) K/uL MPV 9.0 (7.4-10.4) fL Immature Gran % (Auto) 0.4 % Neut % (Auto) 72.7 % Lymph % (Auto) 18.5 % [place] % (Auto) 8.1 % Eos % (Auto) 0.2 % Baso % (Auto) 0.1 % Immature Gran # (Auto) 0.03 H (0.00-0.02) K/uL Neut # (Auto) 6.01 (1.4-6.5) K/uL Lymph # (Auto) 1.53 (1.2-3.4) K/uL [place] # (Auto) 0.67 H (0.11-0.59) K/uL Eos # (Auto) 0.02 (0-0.5) K/uL Baso # (Auto) 0.01 (0-0.2) K/uL Sodium 141 (136-145) mmol/L Potassium 3.3 L (3.5-5.1) mmol/L Chloride 106 (98-107) mmol/L Carbon Dioxide 28 (21-32) mmol/L Anion Gap 7.0 (3-11) BUN 9 D (7-18) mg/dl Creatinine 0.64 (0.6-1.2) mg/dl Est Cr Clr Drug Dosing 89.3 ml/min Est GFR ( Amer) 110.8 Est GFR (Non-Af Amer) 95.6 BUN/Creatinine Ratio 13.9 (10-20) Glucose 102 H (70-99) mg/dl Calcium 8.4 L (8.5-10.1) mg/dl
--- NOTE | 2019-04-07 10:38 | Hospitalist Progress Note ---
Date of Service April 07, 2019 Assessment & Plan (1) Small bowel obstruction: Per surgery, CT findings more likely result of enteritis NG removed, patient to start on clear liquids BM over the night, nausea resolved Surgery consulted (2) Abdominal pain: resolved (3) Anxiety: Continue home lorazepam (4) Hypothyroidism: continue home levothyroxine (5) Migraine headache: improving from last night - received phenergan and morphine Home prn medications - rizatriptan, fiorinal, Excedrin (6) Breast cancer: Continue home anastrazole (7) DVT prophylaxis: ambulatory, SCDs, enoxaparin Subjective Ms. West is feeling better today, continues to have some headache which has improved but no further nausea. Throat is sore from the NG tube. Had a bowel movement this morning ROS Constitutional: no chills, aches, sweats or fever Respiratory: no sob,cough, sputum, or wheezing Cardiac: no chest pain, palpitations, edema, orthopnea or lightheadedness GI: no abdominal pain, nausea, vomiting, diarrhea or constipation : no dysuria or hesitancy Extremities: no joint pain or weakness Skin: no rash All other systems reviewed and negative Physical Exam Physical Exam: General: no distress Eyes: normal inspection, PERLL Respiratory: chest non tender, clear to auscultation, normal breath sounds, no respiratory distress, no accessory muscle use Cardiac: regular rate and rhythm, no rub or gallop, no murmur, no edema, no jvd GI/: active bowel sounds, no abd pain or tenderness, soft, non distended Extremities: normal range of motion, normal strength, non tender Neuro/Psych: alert and oriented x 3, normal mood and affect Skin: normal color, dry Results & Data Vital Signs (Past 12 Hours) Vital Signs Temp Pulse Resp BP Pulse Ox 04/07/19 07:28 37.2 C 04/07/19 07:22 38 C H 104 H 16 146/72 H 96 PG Care Time/CCT Total # of Minutes Spent Total Time Spent with Patient: Total time spent is greater than 50% in coordination of care (as documented) at patient's floor/unit and/or counseling patient:
[2019-04-07] MEDS: ENOXAPARIN INJ 40 MG/0.4 ML SYR SQ SCH (13:51)
[2019-04-08] MEDS: LACTATED RINGER'S 1,000 ML IV SCH ×3 (03:09→19:31)
[2019-04-08] MEDS: ENOXAPARIN INJ 40 MG/0.4 ML SYR SQ SCH (09:02)
[2019-04-08] MEDS: FAMOTIDINE 20 MG in SYRINGE 3 ML IV SCH ×2 (09:03→21:29)
[2019-04-08 09:06] LABS: Hematocrit (blood only) 34.2 % (37-47); Hemoglobin 11.5 g/dL (12.0-16.0); Mean Corpuscular Hemoglobin 31.5 pg (25-34); Mean Corpuscular Hgb Conc 33.6 g/dL (32-36); Mean Corpuscular Volume 93.7 fL (80-100); Mean Platelet Volume 8.5 fL (7.4-10.4); Platelet Count 144 K/uL (130-400); RDW Coefficient of Variation 12.5 % (11.5-14.5); RDW Standard Deviation 42.3 fL (36.4-46.3); Red Blood Count 3.65 M/uL (4.2-5.4); White Blood Count 5.11 K/uL (4.8-10.8)
[2019-04-08 09:34] LABS: BUN Creatinine Ratio 9.6 (10-20); Calcium 8.5 mg/dl (8.5-10.1); Creatinine Clr Calc Pharmacy 62.8 ml/min; Est GFR (African American) 78.4; Est GFR (Non-African American) 67.6; Potassium 3.1 mmol/L (3.5-5.1)
[2019-04-08] MEDS ORDERED: POTASSIUM CHLORIDE 20 MEQ TABCR PO STA (09:38)
--- NOTE | 2019-04-08 09:41 | Hospitalist Progress Note ---
Date of Service April 08, 2019 Assessment & Plan (1) Small bowel obstruction: * Resolving -- No pmhx sbo. + Diverticulosis without diverticulitis. --Admitted for possible SBO vs ileus vs enteritis * General Surgery consulted -- appreciate input -- per surgery, CT findings more likely result of enteritis * Patient tolerated clear liquid diet--> advanced to full liquid per surgical team * Possible d/c tomorrow (2) Abdominal pain: * resolved (3) Anxiety: * Continue home lorazepam 1mg QHS prn (4) Hypokalemia: * Potassium 3.1 today -- replaced with 40 MEQ KCl * Will continue to monitor (5) Hypothyroidism: * Resume home levothyroxine 88mcg * TSH 2.51 on 01/28 -- was 1.May * Rec repeat in 3 months-- consider increased dosage-- may be contributing to chronic constipation (6) Migraine headache: * Improved * Patient not requiring home triptan or excedrin at this time * Continue home meds prn (7) Breast cancer: * Continue home anastrazole (8) DVT prophylaxis: * Ambulation encouraged * SCDs, enoxaparin Dispo: possible discharge tomorrow Supervising Physician Co-Signing Physician Notes Attending Attestation: Chart reviewed in detail, care plan d/w KELIN Enrique. I agree w/ the suero components of her documentation. 63yo female with pSBO vs enteritis - clinically resolving with passage of copious flatus. Tolerating diet. Appreciate gen surg consult & recs. Vitals/labs remain acceptable. Cont conservative management. Lonnie Saldaña MD Subjective Patient evaluated this morning. She states she does not have any abdominal pain currently, except when someone presses on her stomach. She denies any nausea or vomiting, and was told by surgery that her diet would be advanced today and possible discharge tomorrow. She denies any fever or chills, but states it is difficult to discern due to continued hot flashes from her anastrazole. She denies any history of obstruction or personal history of colon cancer, but states her father from colon cancer. She gets colonoscopies every [address] Weller, and had a polyp removed during her last colonoscopy. Review of Systems Constitutional: no fever and no chills Eyes: no diplopia and no eye pain Ear, Nose, Mouth, Throat: no tinnitus and no dizziness Respiratory: no cough and no dyspnea Cardiovascular: no chest pain and no edema Gastrointestinal: + constipation (chronically takes metamucil at home); no nausea, no vomiting, no hematemesis and no diarrhea/loose stools Genitourinary: no dysuria and no urinary frequency Musculoskeletal: no stiffness and no body aches Integumentary: no rash and no lesions Neurologic: + headache(s) (slight headache this morning, better than yesterday); no dizziness Endocrine: hot flashes Physical Exam Constitutional: WD/WN, vitals as above Eyes: PERRL, conjunctivae normal, anicteric sclerae ENMT: external ear and nose normal, oropharynx normal Neck: trachea midline, no thyromegaly Respiratory: normal respiratory effort, lungs clear to auscultation Cardiovascular: RRR, no murmur, no edema Gastrointestinal (Abdomen): normal bowel sounds, soft, nontender, no hepa tosplenomegaly Percussion/Palpation: no guarding and abdomen not rigid Musculoskeletal: no cyanosis or clubbing, extremities motor strength 5/5 Skin: no rashes, warm and dry Neurologic: PERRL, EOMI, accommodation nl, no face palsy, no dysarthria Psychiatric: A+Ox3, euthymic affect Lymphatic: no lymphadenopathy Results & Data Vital Signs (Past 12 Hours) Vital Signs Temp Pulse Resp BP Pulse Ox 04/08/19 07:18 37.0 C 81 18 135/72 97 04/07/19 22:50 37 C 96 H 16 116/62 95 Laboratory Results 04/08/19 04/08/19 Range/Units 08:53 08:53 WBC 5.11 (4.8-10.8) K/uL RBC 3.65 L (4.2-5.4) M/uL Hgb 11.5 L (12.0-16.0) g/dL Hct 34.2 L (37-47) % MCV 93.7 (80-100) fL MCH 31.5 (25-34) pg MCHC 33.6 (32-36) g/dL RDW Std Deviation 42.3 (36.4-46.3) fL RDW Coeff of Sammie 12.5 (11.5-14.5) % Plt Count 144 (130-400) K/uL MPV 8.5 (7.4-10.4) fL Sodium 140 (136-145) mmol/L Potassium 3.1 L (3.5-5.1) mmol/L Chloride 107 (98-107) mmol/L Carbon Dioxide 28 (21-32) mmol/L Anion Gap 5.0 (3-11) BUN 9 (7-18) mg/dl Creatinine 0.91 (0.6-1.2) mg/dl Est Cr Clr Drug Dosing 62.8 ml/min Est GFR ( Amer) 78.4 Est GFR (Non-Af Amer) 67.6 BUN/Creatinine Ratio 9.6 L (10-20) Glucose 204 H (70-99) mg/dl Calcium 8.5 (8.5-10.1) mg/dl PG Care Time/CCT Total # of Minutes Spent Total Time Spent with Patient: Total time spent is greater than 50% in coordination of care (as documented) at patient's floor/unit and/or counseling patient:
--- NOTE | 2019-04-08 09:43 | Surgery Progress Note ---
Date of Service April 08, 2019 Assessment & Plan (1) Abdominal pain: Likely more of an enteritis/ileus than SBO bowel movement yesterday, continues to pass flatus CT scan with fecal load Plan: advance to full liquids ambulate in hallway continue medical management may need to consider bowel regimen as patient states she has to take fiber daily to have bowel movement and hasn't taken in a while. Dr. Kruse has seen and examined pt, agrees with above. Supervising Physician Co-Signing Physician Notes I interviewed and examined this patient I agree with the above note. The patient had evidence of a bowel obstruction but she is passing a lot of flatus. She tolerated clear liquids. Agree with advancing to full liquid diet. Subjective passing flatus, no bowel movement no nausea or vomiting ambulating hallway no abdominal pain Physical Exam Constitutional: WD/WN, vitals as above not ill appearing Gastrointestinal (Abdomen): Inspection/Auscultation: abdomen normal to inspection and normal bowel sounds; abdomen not distended Percussion/Palpation: abdomen soft; abdomen nontender, no guarding and abdomen not rigid Skin: no rashes, warm and dry Psychiatric: A+Ox3, euthymic affect Results & Data Vital Signs (Past 12 Hours) Vital Signs Temp Pulse Resp BP Pulse Ox 04/08/19 07:18 37.0 C 81 18 135/72 97 04/07/19 22:50 37 C 96 H 16 116/62 95 Laboratory Results 04/08/19 04/08/19 Range/Units 08:53 08:53 WBC 5.11 (4.8-10.8) K/uL RBC 3.65 L (4.2-5.4) M/uL Hgb 11.5 L (12.0-16.0) g/dL Hct 34.2 L (37-47) % MCV 93.7 (80-100) fL MCH 31.5 (25-34) pg MCHC 33.6 (32-36) g/dL RDW Std Deviation 42.3 (36.4-46.3) fL RDW Coeff of Sammie 12.5 (11.5-14.5) % Plt Count 144 (130-400) K/uL MPV 8.5 (7.4-10.4) fL Sodium 140 (136-145) mmol/L Potassium 3.1 L (3.5-5.1) mmol/L Chloride 107 (98-107) mmol/L Carbon Dioxide 28 (21-32) mmol/L Anion Gap 5.0 (3-11) BUN 9 (7-18) mg/dl Creatinine 0.91 (0.6-1.2) mg/dl Est Cr Clr Drug Dosing 62.8 ml/min Est GFR ( Amer) 78.4 Est GFR (Non-Af Amer) 67.6 BUN/Creatinine Ratio 9.6 L (10-20) Glucose 204 H (70-99) mg/dl Calcium 8.5 (8.5-10.1) mg/dl
[2019-04-08] MEDS ORDERED: LORazepam 1 MG TAB PO PRN (09:52)
[2019-04-08] MEDS ORDERED: ANASTRAZOLE 1 MG PO SCH (10:00)
[2019-04-08] MEDS ORDERED: ARTIFICIAL TEARS OP PRN (10:15)
[2019-04-08] MEDS: ANASTROZOLE 1 MG TAB PO SCH (11:13)
[2019-04-08] MEDS: IRON POLYSACCHARIDE COMPLEX 150 MG CAPSULE PO SCH ×2 (11:14→21:25)
[2019-04-08] MEDS: CALCIUM 600MG + VIT D 400 IU TAB PO SCH ×2 (11:15→21:25)
[2019-04-09] MEDS: LACTATED RINGER'S 1,000 ML IV SCH (03:33)
[2019-04-09 06:21] LABS: Hematocrit (blood only) 31.9 % (37-47); Hemoglobin 10.9 g/dL (12.0-16.0); Mean Corpuscular Hemoglobin 31.4 pg (25-34); Mean Corpuscular Hgb Conc 34.2 g/dL (32-36); Mean Corpuscular Volume 91.9 fL (80-100); Mean Platelet Volume 8.6 fL (7.4-10.4); Platelet Count 143 K/uL (130-400); RDW Coefficient of Variation 12.3 % (11.5-14.5); RDW Standard Deviation 41.6 fL (36.4-46.3); Red Blood Count 3.47 M/uL (4.2-5.4); White Blood Count 4.11 K/uL (4.8-10.8)
[2019-04-09] MEDS ORDERED: LEVOTHYROXINE SODIUM 88 MCG TABLET PO SCH ×2 (06:30)
[2019-04-09 06:54] LABS: Albumin Level 3.2 gm/dl (3.4-5.0); BUN Creatinine Ratio 8.8 (10-20); Calcium 8.7 mg/dl (8.5-10.1); Est GFR (African American) 108.7; Est GFR (Non-African American) 93.7; Potassium 3.3 mmol/L (3.5-5.1)
[2019-04-09 06:57] LABS: Albumin Globulin Ratio 1.2 (0.9-2); Bilirubin,Total 0.4 mg/dl (0.2-1); Globulin 2.7 gm/dl (2.5-4.0); Total Protein 5.9 gm/dl (6.4-8.2)
[2019-04-09] MEDS ORDERED: POTASSIUM CHLORIDE 20 MEQ TABCR PO STA (08:32)
[2019-04-09] MEDS: CALCIUM 600MG + VIT D 400 IU TAB PO SCH (08:50)
[2019-04-09] MEDS: ANASTROZOLE 1 MG TAB PO SCH (08:50)
[2019-04-09] MEDS: ENOXAPARIN INJ 40 MG/0.4 ML SYR SQ SCH (08:51)
[2019-04-09] MEDS: IRON POLYSACCHARIDE COMPLEX 150 MG CAPSULE PO SCH (08:51)
[2019-04-09] MEDS: FAMOTIDINE 20 MG in SYRINGE 3 ML IV SCH (08:55)
[2019-04-09] MEDS ORDERED: ASCORBIC ACID 500 MG TAB PO SCH (09:00)
[2019-04-09] MEDS ORDERED: PSYLLIUM 58.6% POWDER PACKET PO SCH (09:00)
[2019-04-09] MEDS ORDERED: CHOLECALCIFEROL 1,000 UNITS TAB PO SCH (09:00)
--- NOTE | 2019-04-09 09:05 | Surgery Progress Note ---
Date of Service April 09, 2019 Assessment & Plan (1) Abdominal pain: Likely more of an enteritis/ileus than SBO liquid bowel movements yesterday, continues to pass flatus CT scan with fecal load Plan: advance to soft diet today, if tolerates from surgical standpoint could be discharged home may need to consider bowel regimen other than fiber supplementation as patient states she has to take fiber daily to have soft bowel movement. Would recommend somewhat limited fiber diet in next 2 weeks given possible SBO and then advance fiber in diet as tolerated. Dr. Kruse has seen and examined pt, agrees with above. Subjective feeling good no abdominal pain no n/v liquid bowel movements yesterday x 2 tolerated full liquids Physical Exam Constitutional: WD/WN, vitals as above no acute distress Skin: no rashes, warm and dry Psychiatric: A+Ox3, euthymic affect Results & Data Vital Signs (Past 12 Hours) Vital Signs Temp Pulse Resp BP Pulse Ox 04/09/19 07:29 37.1 C 88 18 147/78 H 95 04/08/19 22:48 37.0 C 62 16 143/76 H 98 Laboratory Results 04/09/19 04/09/19 04/08/19 Range/Units 05:55 05:55 08:53 WBC 4.11 L (4.8-10.8) K/uL RBC 3.47 L (4.2-5.4) M/uL Hgb 10.9 L (12.0-16.0) g/dL Hct 31.9 L (37-47) % MCV 91.9 (80-100) fL MCH 31.4 (25-34) pg MCHC 34.2 (32-36) g/dL RDW Std Deviation 41.6 (36.4-46.3) fL RDW Coeff of Sammie 12.3 (11.5-14.5) % Plt Count 143 (130-400) K/uL MPV 8.6 (7.4-10.4) fL Sodium 142 140 (136-145) mmol/L Potassium 3.3 L 3.1 L (3.5-5.1) mmol/L Chloride 108 H 107 (98-107) mmol/L Carbon Dioxide 31 28 (21-32) mmol/L Anion Gap 3.0 5.0 (3-11) BUN 6 L 9 (7-18) mg/dl Creatinine 0.68 0.91 (0.6-1.2) mg/dl Est Cr Clr Drug Dosing 84.0 62.8 ml/min Est GFR ( Amer) 108.7 78.4 Est GFR (Non-Af Amer) 93.7 67.6 BUN/Creatinine Ratio 8.8 L 9.6 L (10-20) Glucose 105 H 204 H (70-99) mg/dl Calcium 8.7 8.5 (8.5-10.1) mg/dl Total Bilirubin 0.4 (0.2-1) mg/dl AST 11 L (15-37) U/L ALT 14 (12-78) U/L Alkaline Phosphatase 59 (45-117) U/L Total Protein 5.9 L (6.4-8.2) gm/dl Albumin 3.2 L (3.4-5.0) gm/dl Globulin 2.7 (2.5-4.0) gm/dl Albumin/Globulin Ratio 1.2 (0.9-2) 04/08/19 Range/Units 08:53 WBC 5.11 (4.8-10.8) K/uL RBC 3.65 L (4.2-5.4) M/uL Hgb 11.5 L (12.0-16.0) g/dL Hct 34.2 L (37-47) % MCV 93.7 (80-100) fL MCH 31.5 (25-34) pg MCHC 33.6 (32-36) g/dL RDW Std Deviation 42.3 (36.4-46.3) fL RDW Coeff of Sammie 12.5 (11.5-14.5) % Plt Count 144 (130-400) K/uL MPV 8.5 (7.4-10.4) fL Sodium (136-145) mmol/L Potassium (3.5-5.1) mmol/L Chloride (98-107) mmol/L Carbon Dioxide (21-32) mmol/L Anion Gap (3-11) BUN (7-18) mg/dl Creatinine (0.6-1.2) mg/dl Est Cr Clr Drug Dosing ml/min Est GFR ( Amer) Est GFR (Non-Af Amer) BUN/Creatinine Ratio (10-20) Glucose (70-99) mg/dl Calcium (8.5-10.1) mg/dl Total Bilirubin (0.2-1) mg/dl AST (15-37) U/L ALT (12-78) U/L Alkaline Phosphatase (45-117) U/L Total Protein (6.4-8.2) gm/dl Albumin (3.4-5.0) gm/dl Globulin (2.5-4.0) gm/dl Albumin/Globulin Ratio (0.9-2)
--- NOTE | 2019-04-09 09:09 | Hospitalist Progress Note ---
Date of Service April 09, 2019 Results & Data Vital Signs (Past 12 Hours) Vital Signs Temp Pulse Resp BP Pulse Ox 04/09/19 07:29 37.1 C 88 18 147/78 H 95 04/08/19 22:48 37.0 C 62 16 143/76 H 98 Laboratory Results 04/09/19 04/09/19 04/08/19 Range/Units 05:55 05:55 08:53 WBC 4.11 L (4.8-10.8) K/uL RBC 3.47 L (4.2-5.4) M/uL Hgb 10.9 L (12.0-16.0) g/dL Hct 31.9 L (37-47) % MCV 91.9 (80-100) fL MCH 31.4 (25-34) pg MCHC 34.2 (32-36) g/dL RDW Std Deviation 41.6 (36.4-46.3) fL RDW Coeff of Sammie 12.3 (11.5-14.5) % Plt Count 143 (130-400) K/uL MPV 8.6 (7.4-10.4) fL Sodium 142 140 (136-145) mmol/L Potassium 3.3 L 3.1 L (3.5-5.1) mmol/L Chloride 108 H 107 (98-107) mmol/L Carbon Dioxide 31 28 (21-32) mmol/L Anion Gap 3.0 5.0 (3-11) BUN 6 L 9 (7-18) mg/dl Creatinine 0.68 0.91 (0.6-1.2) mg/dl Est Cr Clr Drug Dosing 84.0 62.8 ml/min Est GFR ( Amer) 108.7 78.4 Est GFR (Non-Af Amer) 93.7 67.6 BUN/Creatinine Ratio 8.8 L 9.6 L (10-20) Glucose 105 H 204 H (70-99) mg/dl Calcium 8.7 8.5 (8.5-10.1) mg/dl Total Bilirubin 0.4 (0.2-1) mg/dl AST 11 L (15-37) U/L ALT 14 (12-78) U/L Alkaline Phosphatase 59 (45-117) U/L Total Protein 5.9 L (6.4-8.2) gm/dl Albumin 3.2 L (3.4-5.0) gm/dl Globulin 2.7 (2.5-4.0) gm/dl Albumin/Globulin Ratio 1.2 (0.9-2) PG Care Time/CCT Total # of Minutes Spent Total Time Spent with Patient: Total time spent is greater than 50% in coordination of care (as documented) at patient's floor/unit and/or counseling patient:
--- NOTE | 2019-04-09 16:58 | Discharge Summary ---
Date of Service April 09, 2019 Admission HPI Per Admitting Provider Ms. West is a very pleasant 63 year old female with a past medical history of breast cancer, hypothyroidism, and osteopenia. She presents today for about 6 hours of abdominal pain following dinner. Patient had a meal around 7:30 regular meal for her fish sweet potatoes and carrots started to have a pain in upper abdomen about forty five minutes after her meal. It was a burning pain that she was not familiar with. Went upstairs to lay down took some mylanta didn't improve. Tried to move around and it was not improved. Oscillated in intensity from bad to worse. Had one episode vomiting when she got to the emergency department nothing previously. Had a small amount of water and two ounces of mylanta pain did not resolve. Presented to emergency department with . Vital signs stable throughout, initial labwork with no major abnormalities, slightly hypokalemic elevated BUN/Creatinine ratio. Initial concern was for Cholecystitis, RUQ ultrasound showed nonspecific pericholecystic fluid, Abdominal CT was then performed which showed evidence of a partial or early complete small bowel obstruction. Patient had an NG tube placed and was given morphine for pain. She is currently much more comfortable and we have been consulted to see her for admission. Patient had breast cancer in 2008, otherwise healthy, family history of colon cancer, she has colonoscopies every five years Had one benign polyp in the last colonoscopy. Anastrozole for ten years, finishes in June. Prescribed by Dr. Roche and Dr. Erika Aguirre in [place]. Patient occasionally gets constipation drinks metamucil every day, tries to eat high fiver cereal at breakfast. Has not been dealing with constipation recently, normal bowel function, no other concerning symptoms or recent illness. Admission Exam Per Admitting Provider Constitutional: 61-year-old woman appearing stated age in no apparent distress with NG tube in place communicating easily Eyes: Anicteric sclerae extraocular muscle movements intact bilaterally, pupils equal round reactive to light bilaterally ENMT: No abnormalities detected Neck supple no masses no lymph nodes palpable Respiratory: Chest expansion symmetric, lung sounds vesicular in all lung garcia, no wheezes rhonchi or rails Cardiovascular:Regular rate and rhythm, Heart sounds dual, no murmurs rubs skips or gallops, no lower limb edema GI: Epigastric abdominal tenderness, abdomen appears swollen and distended, pain is mild, no peritoneal signs, abdomen soft Skin: No abnormalities detected Principal Diagnosis Enteritis Discharge Exam Constitutional WD/WN, vitals as above Eyes PERRL, conjunctivae normal, anicteric sclerae ENMT external ear and nose normal, oropharynx normal Neck trachea midline, no thyromegaly Respiratory normal respiratory effort, lungs clear to auscultation Cardiovascular RRR, no murmur, no edema Gastrointestinal (Abdomen) normal bowel sounds, soft, nontender, no hepatosplenomegaly Percussion/Palpation: no guarding and abdomen not rigid Musculoskeletal no cyanosis or clubbing, extremities motor strength 5/5 Skin no rashes, warm and dry Neurologic PERRL, EOMI, accommodation nl, no face palsy, no dysarthria Psychiatric A+Ox3, euthymic affect Lymphatic no lymphadenopathy Discharge Data Allergies Allergy/AdvReac Type Severity Reaction Status Date / Time codeine AdvReac Intermediate NAUSEA AND Verified 04/06/19 00:53 VOMITING Consultations 04/06/19 03:01 ED Decision to Admit Stat 04/06/19 04:52 Consult General Surgery Routine Ordered Studies 04/06/19 00:20 US gallbladder Urgent FINDINGS: Visualized pancreas is unremarkable. The liver is within normal limits. No focal hepatic mass lesion or intrahepatic biliary ductal dilation. Trace layering gallbladder sludge without wall thickening, or cholelithiasis. Nonspecific trace pericholecystic fluid. Normal common bile duct, 5 mm. Nonobstructing calculi of the right kidney measure up to 4 mm. IMPRESSION: 1. No cholelithiasis or gallbladder wall thickening. 2. Trace pericholecystic fluid is likely related to the small bowel findings described on CT abdomen and pelvis study of same day. 3. No biliary ductal dilation. 4. Nonobstructing right nephrolithiasis. 04/06/19 01:[address] WITH IV CONTRAST CT DOSE: 409.16 mGy.cm HISTORY: Acute generalized abdominal pain with history of breast cancer Upper abdominal pain TECHNIQUE: Multiaxial CT images of the abdomen and pelvis were performed following the IV administration of 93 cc of Optiray 320, A dose lowering technique was utilized adhering to the principles of ALARA. COMPARISON STUDY: Right upper quadrant ultrasound of same day, chest CT 03/11/2009 FINDINGS: 11 x 7 mm partially imaged nodular density of the medial right lung base on image 1 series 3 is suggestive of a probable lymph node and has mildly increased in size from comparison. Mild bibasilar atelectasis. There is no pneumatosis or pneumoperitoneum. Imaged inferior cardiac chambers are mildly enlarged. Mild gallbladder distention without cholelithiasis. Liver, spleen, pancreas and adrenal glands appear unremarkable. There are a few subcentimeter hypodense foci of the kidneys suggestive of probable cysts. No ureteral calculi or obstructive uropathy. Unremarkable urinary bladder. Uterus and adnexa are unremarkable. Multiple phleboliths of the pelvis. Aorta and IVC are within normal limits. There are several air and fluid-filled dilated and prominent loops of small bowel within the abdomen and pelvis measuring up to 2.6 cm transversely. No discrete transition point identified. Mild associated intraluminal edema with trace abdominal pelvic ascites. Moderate fecal retention. Air-filled noninflamed appearing appendix. Soft tissues are unremarkable. Subcortical cystic changes with possible remote AVN of the right femoral head. Degenerative changes of the hips, pelvis and spine. No suspicious lytic or blastic bony lesions are identified. Ill-defined sclerosis of the left iliac bone is likely benign. IMPRESSION: 1. Multiple dilated and prominent air and fluid-filled loops of small bowel throughout the abdomen and pelvis without transition point identified is suggestive of low-grade small bowel obstruction with enteritis or ileus also in the differential. Close follow-up is needed. 2. Mild reactive mesenteric edema with trace abdominopelvic ascites. 3. No pneumatosis or pneumoperitoneum. 4. Moderate fecal retention. 5. Noninflamed appendix. Hospital Course (1) Small bowel obstruction: * Resolving -- No pmhx sbo. + Diverticulosis without diverticulitis. Admitted for possible SBO vs ileus vs enteritis. General surgery consulted. Patient kept NPO, given IVF. * Per surgery, CT findings more likely result of enteritis. Patient diet advanced as tolerated. Low fiber diet. During admission, patient found to be hypokalemic. Given oral replacement and instructed to continue 20MEQ KCl until seen by PCP for repeat BMP. (2) Abdominal pain: * resolved (3) Anxiety: * Continue home lorazepam 1mg QHS prn (4) Hypokalemia: * Potassium found to be as low as 3.1. Replaced with 40 MEQ KCl. * Repeat labs continue to be mildly low, with continuance of 20 MEQ KCl. * Will need repeat BMP in the next 5-7 days at discretion of PCP (5) Hypothyroidism: * Continue home levothyroxine 88mcg * TSH 2.51 on 01/28 -- was 1.May * Rec repeat in 3 months-- consider increased dosage-- may be contributing to chronic constipation * Suggested low fiber diet x 2 week, possible addition of sorbitol or dulcolax for constipation (6) Migraine headache: * Resolved- had headache night of 04/06. Given phenergan and morphine as she was NPO. * Continue home meds prn (7) Breast cancer: * Continue home anastrazole (8) DVT prophylaxis: * Ambulation encouraged * SCDs, enoxaparin while inpatient Incidental finding on GB U/S: Nonobstructing calculi of the right kidney measure up to 4 mm. Total Time Total Time Spent Total Time Spent (In Minutes): 35 Discharge Plan Discharge Items Patient Disposition: Home - Self-Care Reason For Visit: ABDOMINAL PAIN/SBO Discharge Diagnosis: Enteritis Condition on Discharge: Good Activity: As commented below Activity Comment: Increase activity as tolerated Non-emergency contact: Primary Care Provider Call non-emergency contact if: you have any medication questions, your pain is not controlled and you have a fever Follow-up/Referrals: Lonnie Maya MD [Primary Care Provider] - Diet: Low Fiber Diet Comment: Limit fiber intake for next two weeks and then increase Addtl Attending Provider Instructions: You were hospitalized for enteritis/ileus. The original concern was for a small bowel obstruction, however the presentation and course are more suggestive of a viral enteritis, which means inflammation of your GI tract. It is recommended that you limit your fiber intake for the next two weeks to give your bowels rest. You may increase back to normal as tolerated after two weeks. During that time, it is suggested that for continued constipation, you may trial dulcolax or sorbital (the stuff they have in the diabetic candies we talked about) over the counter. Please also continue to stay well hydrated during this time. Your potassium was slightly low during this admission. Like discussed, it is not critically low, however a prescription for a daily potassium (20 MEQ) has been sent to your pharmacy. Please take one tablet daily until seen by Dr. Maya in the next week for repeat blood work (a BMP, or metabolic panel) to see if you will continue to need supplementation. Please report to the emergency room if you have worsening abdominal pain, fever, chills, nausea, vomiting or other symptoms that are concerning for you. It has been a pleasure being apart of your medical team during this hospitalization. Take care! One more suggestion is to continue to remain well hydrated. Pending Studies at Discharge: No Stand-Alone Forms: Call Back Authorization, My [facility], Smoking Cessation Medications and DC Order Prescriptions: New potassium chloride 20 mEq tablet extended release 20 meq PO DAILY 14 Days Qty: 14 RF: 0 Continued polysaccharide iron complex 150 mg iron capsule 150 mg PO AMPM Qty: 60 RF: 0 levothyroxine 88 mcg tablet 88 mcg PO DAILY Qty: 90 RF: 0 rizatriptan 10 mg tablet,disintegrating 10 mg PO ONCE PRN (Reason: migraine headache) Qty: 9 RF: 0 zoledronic juey-fsfseart-amucm 5 mg/100 mL piggyback 5 mg IV YEARLY Qty: 1 RF: 0 anastrozole [Arimidex] 1 mg tablet 1 mg PO DAILY RF: 0 ascorbic acid (vitamin C) 500 mg capsule 500 mg PO DAILY RF: 0 cholecalciferol (vitamin D3) 2,000 unit capsule 2,000 units PO DAILY RF: 0 calcium carbonate-vitamin D3 [Calcium 600 with Vitamin D3] 600 mg(1,500mg) - 500 unit Capsule 1 cap PO AMPM RF: 0 lorazepam 1 mg Tablet 1 mg PO HS PRN (Reason: Anxiety) RF: 0 ocjjnnzonh-ltflbxv-epykgazp 50-325-40 mg capsule 2 cap PO Q6 PRN (Reason: Headache) RF: 0 psyllium Packet 1 packet PO DAILY RF: 0 Systane (PF) 0.4-0.3 % Dropperette 1 drp OPHTHALMIC (EYE) BID PRN (Reason: Dry Eye(S)) RF: 0 Discharge Orders: Discharge Order (Routine); Ordered 04/09/19 Ordered By: Yaneli Enrique Admission Data Admit Date/Time: 04/06/19 04:02 Attending Provider: Lonnie Saldaña Admit Provider: Femi Anaya Primary Care Provider: Lonnie Maya Other Providers: Tom Black ; Aurelio Grimes ; Donald Brown Other Interventions: Discharge Summary Assessment (RN) Last Done: 04/09/19 16:08 DC Date/Time DO NOT enter until pt leaves facility: 04/09/19 18:29 Supervising Physician Co-Signing Physician Notes Attending Attestation and Discharge Note: Pt seen/examined, chart reviewed, discharge care plan d/w KELIN Enrique. I agree w/ the suero components of her discharge documentation. 63yo female with pSBO vs enteritis - clinically resolved with use of NG tube, fluids, and time. Seen by gen surg - felt to have enteritis rather than pSBO process. NG tube discontinued; diet resumed and advanced w/o difficulty. Passing plenty of stool prior to discharge. Vitals/labs remained acceptable while hospitalized. Low fiber diet for 7-10 days post-discharge advised. Discharge exam: gen - NAD heart - RRR, s1, s2, no murmur lungs - CTA b/l abd - soft NT ND BS+ no HSM ext - no edema Lonnie Saldaña MD
== END 2019-04-09 18:29 | disposition home or self-care (01) | DRG 392 ==
LOC: ED 23:56 → 3N 04-06 04:02 → SUATTDRO 04-06 04:02 → 3N 04-06 04:33

== ENCOUNTER 2020-10-01 05:13 | Observation (INO) ==
--- NOTE | 2020-09-03 14:45 | PAT Medication Instructions ---
Medication Instructions Date of Service September 03, 2020 Home Medications Medication Instructions Recorded polysaccharide iron complex 150 mg 150 mg PO BID #180 cap 06/03/19 iron capsule ascorbic acid (vitamin C) 500 mg capsule 500 mg PO QPM cholecalciferol (vitamin D3) 50 mcg (2,000 unit) capsule 2,000 units PO QAM rizatriptan 10 mg disintegrating tablet 10 mg PO ONCE PRN xshyewiaqc-skxjuyh-lhkghbcj 1 cap PO Q6 PRN lorazepam 0.5 mg PO UD PRN psyllium 1 packet PO HS Advanced Eye Relief 1 drp OPHTHALMIC (EYE) DAILY PRN calcium citrate-vitamin D3 [Calcium Citrate + D] 1 tab PO QPM ibuprofen [Advil] 200 mg PO Q6H PRN polysaccharide iron complex 150 mg iron capsule 150 mg PO BID acetaminophen 500 mg tablet 500 mg PO Q12H PRN levothyroxine 88 mcg PO QAM multivitamin 1 tab PO DAILY ASK your surgeon for instructions khwawxfoxe-luntqns-cgjpzjqf 1 cap PO Q6 PRN ibuprofen [Advil] 200 mg PO Q6H PRN DO NOT take the morning of surgery cholecalciferol (vitamin D3) 50 mcg (2,000 unit) capsule 2,000 units PO QAM polysaccharide iron complex 150 mg iron capsule 150 mg PO BID multivitamin 1 tab PO DAILY Take morning of surgery With a small sip of water, OTHERWISE NOTHING TO EAT OR DRINK AFTER MIDNIGHT: rizatriptan 10 mg disintegrating tablet 10 mg PO ONCE PRN (if needed) lorazepam 0.5 mg PO UD PRN (if needed) Advanced Eye Relief 1 drp OPHTHALMIC (EYE) DAILY PRN (if needed) acetaminophen 500 mg tablet 500 mg PO Q12H PRN (if needed, may be taken up to four hours before surgery) levothyroxine 88 mcg PO QAM Take evening before surgery ascorbic acid (vitamin C) 500 mg capsule 500 mg PO QPM rizatriptan 10 mg disintegrating tablet 10 mg PO ONCE PRN (if needed) lorazepam 0.5 mg PO UD PRN (if needed) psyllium 1 packet PO HS Advanced Eye Relief 1 drp OPHTHALMIC (EYE) DAILY PRN (if needed) calcium citrate-vitamin D3 [Calcium Citrate + D] 1 tab PO QPM polysaccharide iron complex 150 mg iron capsule 150 mg PO BID acetaminophen 500 mg tablet 500 mg PO Q12H PRN (if needed) Other Notes If you have any questions please call us at [phone] or [phone] or [phone] or [phone]
--- NOTE | 2020-09-04 13:56 | Anesthesiology Consultation ---
Date of Service September 04, 2020 Assessment & Plan (1) Encounter for pre-operative examination: COVID Status: As of 09/04 assessment, patient denies travel to endemic area, known exposure/sick contacts, or symptoms of COVID19. She was COVID + 07/14/20; fever, cough, fatigue, weakness. Still has some residual fatigue. Patient instructed that they and their household members must follow strict social distancing guidelines, wear a mask in public and avoid travel/events/gatherings for 14 days prior to surgery. Traveling to [facility] 09/09-09/11 for her 's health issues; staying in hotel 1-2 nights. Preoperative COVID19 testing to be completed prior to surgery per surgeon's arrangements (pt aware). Patient made aware to self-isolate as much as possible between COVID testing and surgery. For SAB: note, 12/09/19 MRI showed "Modic type I endplate generation at L5-S1 with severe disc space narrowing." R limb restriction. Primary care visit 08/11/2020: "She has significant osteoarthritis involving her right hip. She is anxious now for surgery. She will be seeing orthopedics soon and hopes to be able to schedule her procedure. I told her that given her family history of coronary disease and despite the fact that she does not really have any risk factors herself, that she should have a dobutamine stress echo for cardiac clearance for her surgery. Her resting echo will likely define the etiology of her heart murmur. She has no immediate cardiac symptoms. Tentatively, she will return to see me in 3 months. No lab is being ordered since she will have significant laboratory work done as part of her preoperative evaluation, assuming she does get scheduled for a hip replacement." Chart Review Chart Review: Acceptable Risk for Surgery (pending stress test 09/07) and Patient seen in Pre Admission Testing Teaching & Discussion Instructed NPO after midnight before surgery, except medications with 15 cc of water. Medication instructions provided according to the PAT guidelines. History Surgery Operation Date: 10/01/20 07:15 Proposed Procedures p Right Total Hip Arthroplasty - Jose Martin Pettit MD Height/Weight Height: 5 ft 3.5 in Weight: 72.4 kg Allergies Allergy/AdvReac Type Severity Reaction Status Date / Time codeine AdvReac Intermediate NAUSEA AND Verified 09/03/20 11:33 VOMITING adhesive AdvReac Mild SKIN Verified 09/03/20 11:33 IRRITATION WITH BANDAIDS Medications Home Medications Medication Instructions Recorded Confirmed Last Taken ascorbic acid (vitamin C) 500 mg 500 mg PO QPM cap 01/24/19 09/03/20 06/06/19 08:00 capsule cholecalciferol (vitamin D3) 50 2,000 units PO QAM cap 01/24/19 09/03/20 06/06/19 08:00 mcg (2,000 unit) capsule rizatriptan 10 mg disintegrating 10 mg PO ONCE PRN #9 tab 01/24/19 09/03/20 Unknown tablet bfnxgmprwd-gvsujfb-exbziqpj 1 cap PO Q6 PRN 04/06/19 09/03/20 Unknown lorazepam 0.5 mg PO UD PRN 04/06/19 09/03/20 Unknown psyllium 1 packet PO HS 04/06/19 09/03/20 04/05/19 Advanced Eye Relief 1 drp OPHTHALMIC (EYE) DAILY PRN 05/23/19 09/03/20 06/06/19 08:00 calcium citrate-vitamin D3 1 tab PO QPM 05/23/19 09/03/20 06/06/19 18:00 [Calcium Citrate + D] ibuprofen [Advil] 200 mg PO Q6H PRN 05/23/19 09/03/20 Unknown polysaccharide iron complex 150 mg 150 mg PO BID #180 cap 06/03/19 09/03/20 06/06/19 08:00 iron capsule acetaminophen 500 mg tablet 500 mg PO Q12H PRN tab 12/19/19 09/03/20 Unknown levothyroxine 88 mcg PO QAM 03/13/20 09/03/20 Unknown multivitamin 1 tab PO DAILY 09/03/20 09/03/20 Unknown Past Medical History Medical History (Updated 09/04/20 @ 15:26 by Jony Conti) Anemia Anxiety Breast cancer 2008 - had chemo and radiation Constipation Heart murmur Noted on exam at PAT, pt reports PCP aware. She had an echo prior to chemo in 2008; scheduled for stress test 09/07. History of COVID-19 Symptoms started 07/07, had COVID test but test was damaged and rpt done 07/14 was POSITIVE. Patient had fever, cough, fatigue, weakness. Still has some residual fatigue. Hypothyroidism Internal hemorrhoids Migraine headache Osteopenia Postmenopausal Exercise / Class Metabolic Activity II 4-5 Yardwork/Stairs/Walk up hill Past Family History Family History Mother Family history of diabetes mellitus Father Family hx of colon cancer Past Surgical History Surgical History History of anesthesia reaction MIGRAINE POST OP PARTIAL MASTECTOMY History of colonoscopy X MULTIPLE History of mastectomy Axillary node removal-2008 parital mastectomy -- lumpectomy History of vascular access device LEFT UPPER CHEST-CURRENT Hx of breast biopsy Hx of foot surgery removal of plantar wart on left foot Bristow teeth removed Past Anesthesia History No Hx of Anesthesia Complications (other than migraine) and No Family Hx of Anesthesia Complications (other than mother also getting migraines post-op) History of PONV No Hx of Motion Sickness and History of PONV (with migraine after mastectomy) Social History Smoking Status: Never smoker Do You Dip or Chew Tobacco: No Hx Alcohol Use: Yes (very rare) Alcohol type: other alcohol intake frequency: holidays/special occasions only Hx Substance Use: No substance use type: does not use Review of Systems Pt denies any recent chest pain, shortness of breath, palpitations, cough, fever, URI, or uncontrolled acid reflux. +fatigue, improving, remaining symptom from COVID in July 2020. Physical Exam Vital Signs BP: 177/71 (patient is VERY anxious) P: 77bpm SPO2: 98% RA T: 97.8 F R: 16 ENMT Mouth: no dental restorations, no chipped teeth and no loose teeth Thyromental Distance: > or= 3.5 Finger Breadths Mallampati Class: I Neck normal visual inspection and + limited neck extension (very mild) Respiratory normal respiratory effort, lungs clear to auscultation Cardiovascular Rate/Rhythm: regular rate and regular rhythm Heart Sounds: + murmur (holosystolic, blowing, across precordium, radiation to carotids) Palpation: no thrill Vessels: no carotid bruit Testing Laboratory Results 09/04/20 14:16 09/04/20 14:45 PT 10.3 Seconds (9.0-12.0) 09/04/20 14:16 INR 1.0 (0.9-1.1) 09/04/20 14:16 Urine Color Yellow 09/04/20 14:16 Urine Appearance Clear (Clear) 09/04/20 14:16 Urine pH 5.0 (4.5-7.5) 09/04/20 14:16 Ur Specific [place] 1.011 (1.000-1.030) 09/04/20 14:16 Urine Protein Negative (Negative) 09/04/20 14:16 Urine Glucose (UA) Negative (Negative) 09/04/20 14:16 Urine Ketones Trace (Negative) H 09/04/20 14:16 Urine Nitrite Negative (Negative) 09/04/20 14:16 Ur Leukocyte Esterase Negative (Negative) 09/04/20 14:16 Blood Type A Positive 09/04/20 14:16 Antibody Screen NEGATIVE 09/04/20 14:16 Electrocardiogram Date: 09/04/20 Findings: + NSR @ (81bpm) and + no change from (2008)
[2020-09-04 15:34] LABS: Basophils # (auto) 0.01 K/uL (0-0.2); Basophils % (auto) 0.1 %; Eosinophils # (auto) 0.06 K/uL (0-0.5); Eosinophils % (auto) 0.9 %; Hematocrit (blood only) 36.5 % (37-47); Hemoglobin 12.9 g/dL (12.0-16.0); Immature Granulocytes # (auto) 0.01 K/uL (0.00-0.02); Immature Granulocytes % (auto) 0.1 %; Lymphocytes # (auto) 1.07 K/uL (1.2-3.4); Lymphocytes % (auto) 15.6 %; Mean Corpuscular Hemoglobin 32.1 pg (25-34); Mean Corpuscular Hgb Conc 35.3 g/dL (32-36); Mean Corpuscular Volume 90.8 fL (80-100); Mean Platelet Volume 8.9 fL (7.4-10.4); Monocytes % (auto) 5.8 %; Neutrophils # (auto) 5.32 K/uL (1.4-6.5); Neutrophils % (auto) 77.5 %; Platelet Count 174 K/uL (130-400); RDW Coefficient of Variation 12.8 % (11.5-14.5); RDW Standard Deviation 42.6 fL (36.4-46.3); Red Blood Count 4.02 M/uL (4.2-5.4); White Blood Count 6.87 K/uL (4.8-10.8)
[2020-09-04 15:48] LABS: Appearance Urine Clear (Clear); Bilirubin Urine Negative (Negative); Blood Urine Negative (Negative); Color Urine Yellow; Glucose Urine UA Negative (Negative); Ketones Urine Trace (Negative); Leukocyte Esterase Urine Negative (Negative); Nitrite Urine Negative (Negative); Protein Urine Negative (Negative); Specific Gravity Urine 1.011 (1.000-1.030); Urobilinogen Urine Negative (Negative)
[2020-09-04 15:50] LABS: BUN Creatinine Ratio 31.1 (10-20); Calcium 9.2 mg/dl (8.5-10.1); Est GFR (African American) 108.2; Est GFR (Non-African American) 93.4; Potassium 4.2 mmol/L (3.5-5.1)
[2020-09-04 15:51] LABS: Prothrombin Time 10.3 Seconds (9.0-12.0)
--- NOTE | 2020-09-04 16:21 | Electrocardiogram Report ---
Test Reason : Blood Pressure : / mmHG Vent. Rate : 081 BPM Atrial Rate : 081 BPM P-R Int : 130 ms QRS Dur : 092 ms QT Int : 404 ms P-R-T Axes : 069 070 076 degrees QTc Int : 469 ms Normal sinus rhythm Normal ECG When compared with ECG of 02-SEP-2008 15:09, No significant change was found Confirmed by Dick Price ([id number]) on 09/04/2020 4:20:29 PM Referred By: Jose Martin Pettit Confirmed By:Dick Price
[2020-09-05 06:17] LABS: Estimated Average Glucose 108 mg/dl; Hemoglobin A1C 5.4 % (4.5-5.6)
[~2020-10-01 05:13] MED LIST changes: -ARM1 PO; -ASCO-63 PO; -ASPI-390 PO; -ATV5 PO; -CHOL2000 PO; -FERROUS SULFATE PO; -FRN PO; -IBUP-1050 PO; -LEVO88TA PO; +ORTHO SCH; -POLYSOL4 OPB; -PSYL55.43 PO; -RIZA10TA19 PO
[2020-10-01] MEDS ORDERED: TRANEXAMIC ACID 1,000 MG **IV Intra-op IV SCH (06:00)
[2020-10-01] MEDS ORDERED: METOCLOPRAMIDE HCL 10 MG TABLET PO SCH (06:00)
[2020-10-01] MEDS ORDERED: LR 500ML BOLUS, THEN 15ML/HR IV SCH (06:00)
[2020-10-01] MEDS ORDERED: dexAMETHasone 4 MG TAB PO SCH (06:00)
[2020-10-01] MEDS ORDERED: FAMOTIDINE 20 MG TAB PO SCH (06:00)
[2020-10-01] MEDS ORDERED: CeleBREX 200 MG CAP PO SCH (06:00)
[2020-10-01] MEDS ORDERED: ROPIVACAINE 0.5% HCL/PF 150 MG, BUPIVACAINE 0.75% MPF 20 ML, EPINEPHrine 0.15 MG, Ketor... INFIL SCH (06:00)
[2020-10-01] MEDS ORDERED: traMADol HCL 50 MG TABLET PO SCH (06:00)
[2020-10-01] MEDS ORDERED: LR 60ML/HR IV SCH (06:00)
[2020-10-01] MEDS ORDERED: TRANEXAMIC ACID 1,000 MG **IV Pre-op IV SCH (06:00)
[2020-10-01] MEDS ORDERED: Scopolamine 1 MG TDSY TD SCH (06:00)
[2020-10-01] MEDS ORDERED: ceFAZolin 2000MG 2,000 MG/15 ML SYR IV SCH (06:00)
[2020-10-01] MEDS ORDERED: ACETAMINOPHEN 500 MG TAB PO SCH (06:00)
[2020-10-01] MEDS ORDERED: BUPIVACAINE 0.5 % 5 MG/1 ML PF 10ML VIAL ONE (06:15)
[2020-10-01] MEDS ORDERED: ONDANSETRON INJ 2 MG/ML 2 ML VIAL ONE (06:33)
[2020-10-01] MEDS ORDERED: LIDOCAINE HCL 2% 2 ML VIAL/AMP(20MG/ML) INFIL ONE (06:33)
[2020-10-01] MEDS ORDERED: GLYCOPYRROLATE 0.2 MG/ML VIAL ONE (06:33)
[2020-10-01] MEDS ORDERED: KETOROLAC 30 MG/ML VIAL ONE (06:33)
[2020-10-01] MEDS ORDERED: PROPOFOL IV EMULSION 10 MG/ML 20 ML VIAL IV ONE (06:33)
[2020-10-01] MEDS ORDERED: MIDAZOLAM HCL 1 MG/ML 2ML VIAL ONE (06:33)
[2020-10-01] MEDS ORDERED: KETAMINE 50 MG/5 ML SYRINGE ONE (06:34)
--- NOTE | 2020-10-01 06:51 | History & Physical Bridge Note ---
Date of Service October 01, 2020 History & Physical Bridge Note I have examined the patient, reviewed the History & Physical and in the interval since the performance of the History & Physical I have noted the following changes of clinical significance: no changes noted
[2020-10-01] MEDS ORDERED: ORTHO JOINT ANESTHETIC ONE (06:59)
[2020-10-01] MEDS ORDERED: ePHEDrine sulfate 50 MG/ML AMP IV PRN (07:51)
[2020-10-01] MEDS ORDERED: ATROPINE SULFATE 0.1 MG/ML 10ML SYR IV PRN (07:51)
--- NOTE | 2020-10-01 09:17 | Operative Report ---
Post Operative Report Pre & Post Diagnosis Operation Date: 10/01/20 07:15 Pre-Op Diagnosis: Right Hip Osteoarthritis Post-Op Diagnosis: Right Hip Osteoarthritis, Increased Femoral Anteversion I identified the patient and participated in the time-out.: Yes Procedure Operation Date: 10/01/20 07:15 Actual Procedures p Right Total Hip Arthroplasty, Uncemented(Right) 22 modifier should be added to this case due to the increased complexity from her abnormal femoral anatomy.- Jose Martin Pettit MD Surgeon Jose Martin Pettit MD Pearl Cutter KARLO Del Rosario PA-C Estimated Blood Loss 200 Findings See Below Patient had increased femoral anteversion of approximately 35 degrees. Our stem had to match this because of the metaphyseal flare. Therefore, we had to increase her offset a little bit to account for impingement between the greater trochanter and the ischium. At the conclusion of the case we had excellent stability with symmetric leg lengths. Specimens Femoral head Anesthesia Type Spinal MAC Complications none Disposition Accompanied Patient To Recovery: No Disposition: Recovery Room Indications 65-year-old female with right hip pain refractory to conservative management. X-rays demonstrate [id number] arthritis. I had a long discussion with her about the risks and benefits of surgery, alternatives to surgery, and expected outcomes. After reviewing all these she elected to proceed with surgery. All questions were answered. Informed consent was signed. Description of Procedure Patient was identified in the preoperative holding area and the surgical site, right hip, was marked. A spinal anesthetic was placed, then the patient was brought back to the main operating room, placed in the operating table and moved into the lateral decubitus position. Axillary roll was placed. All bony prominences were padded. Perioperative antibiotics and tranexamic acid 1 gram IV were administered. Operative extremity was prepped and draped in the normal sterile fashion. Prior to incision a multidisciplinary timeout was called. All in the room were in agreement. We began by making an incision for a posterior approach to the hip. We dissected down through subcutaneous tissues to the level of the fascia. The fascia was incised in line with the incision. Charnley bow was placed. The trochanteric bursa was excised. The piriformis and short external rotators were dissected off the posterior aspect of the hip. A box cut was made in the capsule. The femoral head was dislocated. The femoral neck cut was made at our preoperative template. The acetabulum was then exposed. The labrum was sharply excised. Contents of the cotyloid fossa were removed with electrocautery. We then began reaming at a size 8 mm less than our preoperative template. We reamed up by [address] the way up to a size 48 mm cup. This gave us good bleeding cancellus bone circumferentially. The acetabulum was then irrigated out and dried. The real [place] Gription cup was then impacted down into position with 45 degrees of lateral opening and 25 degrees of anteversion. A single cancellous bone screw was placed up into the ilium. Excellent fixation was obtained. An Altrx polyethylene liner for a 32 mm femoral head was then impacted into the shell. The locking mechanism was checked to ensure that it had engaged which it had. Small osteophytes from the anterior and posterior acetabulum were then removed using pituitary rongeur. Next we turned our attention to the femur. As noted above, the patient had a bnormally increased femoral anteversion approximately 35 degrees. The lateral neck was removed with a box osteotome. Intramedullary guide was used followed by the lateralizing reamer. We then reamed up to a size 2 [place] stem. We then broached all the way up to a size 2. We began trialing with a standard offset neck and a +5 head. Hip was reduced. There was some impingement between the ischium and the greater trochanter. This was a result of her increased femoral anteversion. Leg length was just a little short as well. Therefore the hip was redislocated and I trialed her with a high offset neck. When the hip was reduced the bony impingement was relieved however, her anterior capsule was now too tight limiting her hip extension. Therefore I redislocated the hip and placed the standard offset neck back in place and switched to a +9 head. Hip was atraumatically reduced. Now, leg lengths were symmetric. The hip was stable in extension and external rotation with no bony impingement, and stable in the sleeper position. At 90 degrees of hip flexion the hip could be internally rotated 70 degrees before levering out of the cup. I was very happy with the stability exam. Therefore the hip was dislocated and the femoral trial was removed. The femoral canal was irrigated and dried. The real size 2 standard offset [place] femoral stem was opened up. This was impacted down into position. It sat at the same level as the femoral trial. Therefore the 32 mm ceramic femoral head with a +9 mm offset was opened up and gently impacted down onto the trunnion. The hip was atraumatically reduced. Another 1 gram of IV tranexamic acid was started prior to closure. The wound was irrigated out with sterile Betadine solution. The periarticular injection cocktail was then placed. The short external rotators, piriformis, and posterior capsule were repaired through drill holes in the greater trochanter using #2 Vicryl. The fascia was run with a looped #1 PDS. The subcutaneous layer was closed with #1 PDS. The dermal layer was closed with 2-0 Vicryl. Zip line was used for the skin followed by a Silverlon dressing. A compressive dressing was then placed. The patient was then rolled supine. Leg lengths were rechecked and were symmetric. An abduction pillow was placed. Sedation was lifted and the patient was transferred to recovery room in stable condition. Summary of implants: Depuy [place] Gription Acetabular Shell Sector Cup, 48 mm outer diameter [place] Cancellous bone screw, 6.5 x 25 mm [place] Altrx Polyethylene Acetabular Liner, Neutral, with a 32 mm inner diameter DePuy [place] Femoral stem with [place], 12/14 taper, size 2 standard offset 32 mm ceramic femoral head with +9 offset Postoperative course: Patient will be admitted to the hospital from the recovery room. Patient will be weightbearing as tolerated with posterior hip precautions. Aspirin for DVT prophylaxis I attest to the content of the Intraoperative Record and any orders documented therein. Any exceptions are noted below.
[2020-10-01] MEDS ORDERED: METOCLOPRAMIDE HCL INJ 5 MG/ML 2 ML VIAL IV PRN (09:19)
[2020-10-01] MEDS ORDERED: MAGNESIUM HYDROXIDE SUSP 30 ML UDC PO PRN (09:19)
[2020-10-01] MEDS ORDERED: diphenhydrAMINE 50 MG/ML VIAL IV PRN (09:19)
[2020-10-01] MEDS ORDERED: oxyCODONE HCL IR 5 MG TAB (IMMEDIATE RELEASE) PO PRN (09:19)
[2020-10-01] MEDS ORDERED: ONDANSETRON INJ 2 MG/ML 2 ML VIAL IV PRN (09:19)
[2020-10-01] MEDS ORDERED: bisacodyL 10 MG SUPP PR PRN (09:19)
[2020-10-01] MEDS ORDERED: ALUMINUM/MAGNESIUM SUSP 30 ML UDC PO PRN (09:19)
[2020-10-01] MEDS ORDERED: HYDROmorphone INJ 0.5 MG/0.5 ML SYR IV PRN (09:19)
[2020-10-01] MEDS ORDERED: NALOXONE HCL 0.4 MG/1 ML VIAL/CARP IV PRN (09:19)
--- NOTE | 2020-10-01 09:19 | Operative Report ---
Post Operative Report Pre & Post Diagnosis Operation Date: 10/01/20 07:15 Pre-Op Diagnosis: Right Hip Osteoarthritis Post-Op Diagnosis: Right Hip Osteoarthritis I identified the patient and participated in the time-out.: Yes Procedure Operation Date: 10/01/20 07:15 Actual Procedures p Right Total Hip Arthroplasty, Uncemented(Right) - Jose Martin Pettit MD Surgeon Jose Martin Pettit MD [employer] Director Radha Del Rosario PA-C Estimated Blood Loss 200 Findings Consistent with Post-Op Diagnosis Specimens femoral head Complications none Disposition Accompanied Patient To Recovery: No Disposition: Recovery Room Description of Procedure I was present during the entire case assisting with positioning, prepping, draping, wound retraction, wound closure, dressing and abduction pillow placement. No fellow present. Please see Dr. Pettit procedure note for specifics of the case. I attest to the content of the Intraoperative Record and any orders documented therein. Any exceptions are noted below.
[2020-10-01] MEDS ORDERED: ACETAMINOPHEN HOME PACK 500 MG TABLET PO PRN (09:23)
--- NOTE | 2020-10-01 09:41 | XRay Report ---
XR pelvis 1-2V routine HISTORY: 65 years-old Female Post Surgical right hip total joint arthroplasty COMPARISON: Pelvis radiograph 09/04/2020 TECHNIQUE: AP view of the pelvis FINDINGS: Right hip total joint arthroplasty. Expected postsurgical soft tissue swelling and deep tissue air. M ild left hip osteoarthritis. No acute fracture or unexpected opaque foreign body. IMPRESSION: Right hip total joint arthroplasty with expected postoperative changes. ACT 112: Negative or not required by law. The above report was generated using voice recognition software. It may contain grammatical, syntax o r spelling errors. Electronically signed by: Holden Rachel M.D. 10/01/2020 9:40 AM
--- NOTE | 2020-10-01 09:45 | Anesthesiology Progress Note ---
Date of Service October 01, 2020 Anesthesia Post Procedure Vital Signs Vital Signs: Temp Pulse Pulse Resp BP Pulse Ox 10/01/20 09:40 84 16 125/56 L 100 10/01/20 09:30 74 14 133/60 100 10/01/20 09:20 80 16 133/55 L 100 10/01/20 09:17 36.4 C L 72 20 116/56 L 100 10/01/20 05:52 36.8 C 91 H 18 164/80 H 98 Transfer of Care Handoff Completed per policy Notes Mental Status: alert / awake / arousable and participated in evaluation Nausea / Vomiting: adequately controlled Pain: adequately controlled Airway Patency, RR, SpO2: stable & adequate BP & HR: stable & adequate Hydration State: stable & adequate Neuraxial Anesthesia: was administered and sensory block is resolving Anesthetic Complications: no major complications apparent and Pt Satisfied with anesthetic care
[2020-10-01] MEDS ORDERED: RIZATRIPTAN BENZOATE MLT 10 MG TAB PO PRN (10:17)
[2020-10-01] MEDS ORDERED: LORazepam 1 MG TAB PO PRN (10:19)
[2020-10-01] MEDS ORDERED: ARTIFICIAL TEARS OP PRN (10:21)
[2020-10-01] MEDS: SODIUM CHLORIDE 0.9% 1000ML 1,000 ML IV SCH ×3 (12:34→22:38)
[2020-10-01] MEDS: KETOROLAC TROMETHAMINE 15 MG/ML VIAL IV SCH ×2 (12:35→18:01)
[2020-10-01] MEDS: ACETAMINOPHEN 500 MG TAB PO SCH ×2 (14:16→20:58)
[2020-10-01] MEDS ORDERED: TRANEXAMIC ACID / 0.7% NACL 1,000 MG/100 ML BAG IV SCH (15:21)
[2020-10-01] MEDS: Scopolamine CHECK PATCH PLACEMENT SCH (15:46)
[2020-10-01] MEDS: ceFAZolin 2000MG 2,000 MG/15 ML SYR IV SCH (16:20)
[2020-10-01] MEDS: PSYLLIUM 58.6% POWDER PACKET PO SCH (19:56)
[2020-10-01] MEDS: ASCORBIC ACID 500 MG TAB PO SCH (19:57)
[2020-10-01] MEDS: CALCIUM 600MG + VIT D 400 IU TAB PO SCH (19:58)
[2020-10-01] MEDS: IRON POLYSACCHARIDE COMPLEX 150 MG CAPSULE PO SCH (19:58)
[2020-10-01] MEDS: DOCUSATE SODIUM 100 MG CAP PO SCH (19:58)
[2020-10-01] MEDS: SENNA 8.6 MG TAB PO SCH (20:01)
[2020-10-02] MEDS: ceFAZolin 2000MG 2,000 MG/15 ML SYR IV SCH (00:38)
[2020-10-02] MEDS: Scopolamine CHECK PATCH PLACEMENT SCH ×4 (00:38→23:08)
[2020-10-02] MEDS: KETOROLAC TROMETHAMINE 15 MG/ML VIAL IV SCH ×2 (00:38→06:01)
[2020-10-02] MEDS: ACETAMINOPHEN 500 MG TAB PO SCH ×3 (06:02→21:24)
[2020-10-02] MEDS: LEVOTHYROXINE SODIUM 88 MCG TABLET PO SCH (06:03)
[2020-10-02 06:39] LABS: Eosinophils # (auto) 0.01 K/uL (0-0.5); Eosinophils % (auto) 0.1 %; Hematocrit (blood only) 26.8 % (37-47); Hemoglobin 9.3 g/dL (12.0-16.0); Immature Granulocytes # (auto) 0.01 K/uL (0.00-0.02); Immature Granulocytes % (auto) 0.1 %; Lymphocytes # (auto) 1.46 K/uL (1.2-3.4); Lymphocytes % (auto) 17.9 %; Mean Corpuscular Hemoglobin 31.5 pg (25-34); Mean Corpuscular Hgb Conc 34.7 g/dL (32-36); Mean Corpuscular Volume 90.8 fL (80-100); Mean Platelet Volume 8.3 fL (7.4-10.4); Monocytes # (auto) 0.59 K/uL (0.11-0.59); Monocytes % (auto) 7.2 %; Neutrophils # (auto) 6.09 K/uL (1.4-6.5); Neutrophils % (auto) 74.7 %; Platelet Count 158 K/uL (130-400); RDW Coefficient of Variation 13.2 % (11.5-14.5); RDW Standard Deviation 43.7 fL (36.4-46.3); Red Blood Count 2.95 M/uL (4.2-5.4); White Blood Count 8.16 K/uL (4.8-10.8)
[2020-10-02 06:57] LABS: BUN Creatinine Ratio 29.1 (10-20); Calcium 8.5 mg/dl (8.5-10.1); Creatinine Clr Calc Pharmacy 75.2 ml/min; Est GFR (African American) 102.6; Est GFR (Non-African American) 88.5; Potassium 3.5 mmol/L (3.5-5.1)
[2020-10-02] MEDS ORDERED: dexAMETHasone 4 MG TAB PO SCH (08:00)
[2020-10-02] MEDS ORDERED: MULTIVITAMIN TAB PO SCH (09:00)
[2020-10-02] MEDS: MULTIVITAMIN TAB PO SCH (09:47)
[2020-10-02] MEDS: IRON POLYSACCHARIDE COMPLEX 150 MG CAPSULE PO SCH ×2 (09:47→21:26)
[2020-10-02] MEDS: ASPIRIN 81 MG ECTAB PO SCH ×2 (09:47→21:25)
[2020-10-02] MEDS: CHOLECALCIFEROL 1,000 UNITS 25 MCG TAB PO SCH (09:47)
[2020-10-02] MEDS: DOCUSATE SODIUM 100 MG CAP PO SCH ×2 (09:47→21:25)
--- NOTE | 2020-10-02 10:40 | Orthopedic Progress Note ---
Date of Service October 02, 2020 Assessment & Plan (1) S/P total hip arthroplasty: Reviewed total hip precautions Weightbearing as tolerated with walker assistance PT/OT Abduction pillow use x6 weeks Keep Silverlon dressing in place Ice with EZ WRAP Pain control with p.o. medications DVT prophylaxis with DEANNE stockings and aspirin Currently will plan on discharge tomorrow morning. We would like the patient's sensory function to return fully before discharging her. Patient does plan on having in-home physical therapy for the first 2 weeks postoperatively She will follow up with [facility] in 2 weeks as she has previously been scheduled With questions contact the clinic at . Admission and Anticipated Discharge Date Admission Date: October 01, 2020 Subjective This 65-year-old female is day 1 status post right total hip arthroplasty. She states that she is very anxious because her right lower extremity is still numb. She states that friends that have had total hip replacements did not seem to have the numbness last so long. She states that she is able to move her leg but states that it feels like that it may give out because she cannot feel it especially when she transitions from her chair to a standing position using her walker as an aid. Currently she has no pain. She also denies chest pain, shortness of breath, fever, chills, sweats, lethargy, nausea, vomiting, diarrhea or any drainage from her dressing. Review of Systems Review of Systems: All systems reviewed & are unremarkable except as noted in Subjective Physical Exam Physical Exam: Right hip: Silverlon dressing is clean dry and intact. Patient is able to Perform an active straight leg raise test. She is able to actively dorsi and plantarflex her foot. Active knee range of motion from 0 to 90 degrees while sitting in the chair. Logroll test is negative. Patient experiences no pain with light passive internal and external hip rotation. Her calf is soft and supple nontender to palpation. She has no tenderness to palpation around the Silverlon dressing and has a numb tingly sensation with palpation. Patient is neurovascularly intact in the right lower extremity. Her peripheral pulses are 2+. Her capillary refill is less than 2 seconds. Quad strength is 3 out of 5. Results & Data ([facility]) Vital Signs (Past 12 Hours) Vital Signs Temp Pulse Resp BP Pulse Ox 10/02/20 07:26 36.9 C 74 16 114/67 100 10/02/20 03:11 36.9 C 77 20 116/66 99 10/01/20 22:56 36.9 C 81 16 129/70 97 Laboratory Results 10/02/20 10/02/20 Range/Units 06:28 06:28 WBC 8.16 (4.8-10.8) K/uL RBC 2.95 L (4.2-5.4) M/uL Hgb 9.3 L (12.0-16.0) g/dL Hct 26.8 L (37-47) % MCV 90.8 (80-100) fL MCH 31.5 (25-34) pg MCHC 34.7 (32-36) g/dL RDW Std Deviation 43.7 (36.4-46.3) fL RDW Coeff of Sammie 13.2 (11.5-14.5) % Plt Count 158 (130-400) K/uL MPV 8.3 (7.4-10.4) fL Immature Gran % (Auto) 0.1 % Neut % (Auto) 74.7 % Lymph % (Auto) 17.9 % Douglas % (Auto) 7.2 % Eos % (Auto) 0.1 % Baso % (Auto) 0.0 % Neut # (Auto) 6.09 (1.4-6.5) K/uL Lymph # (Auto) 1.46 (1.2-3.4) K/uL Douglas # (Auto) 0.59 (0.11-0.59) K/uL Eos # (Auto) 0.01 (0-0.5) K/uL Baso # (Auto) 0.00 (0-0.2) K/uL Immature Gran # (Auto) 0.01 (0.00-0.02) K/uL Sodium 142 (136-145) mmol/L Potassium 3.5 (3.5-5.1) mmol/L Chloride 111 H (98-107) mmol/L Carbon Dioxide 28 (21-32) mmol/L Anion Gap 3.0 (3-11) BUN 21 H (7-18) mg/dl Creatinine 0.72 (0.6-1.2) mg/dl Est Cr Clr Drug Dosing 75.2 ml/min Est GFR ( Amer) 102.6 Est GFR (Non-Af Amer) 88.5 BUN/Creatinine Ratio 29.1 H (10-20) Glucose 105 H (70-99) mg/dl Calcium 8.5 (8.5-10.1) mg/dl
--- NOTE | 2020-10-02 10:48 | Discharge Summary ---
Date of Service October 02, 2020 Admission HPI Per Admitting Provider This 65-year-old female presents the clinic today for her preoperative history and physical. Patient says that it was discovered back in April incidentally that she had right hip arthritis and a CT scan for a different problem. She did not have any symptoms until August 2019. She said she did not have an injury which was started insidiously. She saw her primary care physician, who recommended physical therapy. However, because of the parekh virus pandemic, she did not feel comfortable going. Patient did do some physical therapy in November 2019 and said that the first visit helped a lot, but the subsequent visits have not helped quite as much. She is getting shooting pain into her groin and sometimes under anterior thigh. She also gets a deep achy type of pain within her hip. It bothers her sitting. She has tried taking Advil and Tylenol. Tylenol has not helped very much, but Advil does help. However, her primary care doctors have wanted her to minimize the amount of Advil she is taking. She is having more good days and bad days at present. She does enjoy riding a bike and is able to do this. No numbness or tingling down the leg. At her last visit patient says her hip pain has worsened significantly. She says it now hurts her going up and down steps. Her pain is now constant, which used to be only intermittent. She is having to take more medication now to control it, which is 2 extra-strength Excedrin in the morning and Tylenol and aspirin at night before bedtime. She is feeling the pain in the groin as well as the anterolateral aspect of the hip, sometimes radiating down to her knee. Patient states she recently saw her primary care provider and discussed the total hip arthroplasty with him and he recommended that she obtain a stress test before proceeding with surgical intervention. Admission Exam Per Admitting Provider Physical Exam: (relevant to the procedure, including heart and lung evaluation) General: Alert and oriented x3 appropriately and hygiene Eyes: Pupils are equal reactive to light with accommodation. Extraocular movements are intact Throat: Deferred due to COVID-19 precautions Cardiac: Regular rate and rhythm with a grade 3/6 holosystolic murmur heard best over the right upper sternal border Lungs: Clear to auscultation throughout no wheezing, rales or rhonchi Abdomen: Nonobese, nondistended, nontender with normoactive bowel sounds Extremities: Right hip exam today shows the patient's external rotation to be severely limited only 20 degrees in the seated position. Internal rotation is to 25 degrees. Flexion is to 125 degrees in the seated position. Neurovascular, intact. Neuro: Cranial nerves II through XII are intact no motor or sensory deficit Skin: Normal in appearance no open skin areas or discharge Principal Diagnosis Right hip osteoarthritis Discharge Exam Right hip: Silverlon dressing is clean dry and intact. Patient is able to Perform an active straight leg raise test. She is able to actively dorsi and plantarflex her foot. Active knee range of motion from 0 to 90 degrees while sitting in the chair. Logroll test is negative. Patient experiences no pain with light passive internal and external hip rotation. Her calf is soft and supple nontender to palpation. She has no tenderness to palpation around the Silverlon dressing and has a numb tingly sensation with palpation. Patient is neurovascularly intact in the right lower extremity. Her peripheral pulses are 2+. Her capillary refill is less than 2 seconds. Quad strength is 3 out of 5. Discharge Data Allergies Allergy/AdvReac Type Severity Reaction Status Date / Time codeine AdvReac Intermediate NAUSEA AND Verified 10/01/20 05:47 VOMITING adhesive AdvReac Mild SKIN Verified 10/01/20 05:47 IRRITATION WITH BANDAIDS Procedures Performed Operation Date: 10/01/20 07:15 Actual Procedures p Right Total Hip Arthroplasty, Uncemented(Right) - Jose Martin Pettit MD Hospital Course (1) S/P total hip arthroplasty: Patient had an eventful overnight stay, however she is very apprehensive and concerned because she still continues to have numbness in her right lower extremity. Her motor function is intact but she states that she feels unsteady on the right lower extremity due to the numbness. She feels that it will be better if she could stay 1 additional night to allow for the numbness to subside so that she could feel her right lower extremity. I feel that this is appropriate and discussed this with Dr. Pettit and he agrees. We will plan on discharging her early tomorrow morning after she is completed physical therapy and Occupational Therapy. Reviewed total hip precautions Weightbearing as tolerated with walker assistance PT/OT Abduction pillow use x6 weeks Keep Silverlon dressing in place Ice with EZ WRAP Pain control with p.o. medications DVT prophylaxis with DEANNE stockings and aspirin Currently will plan on discharge tomorrow morning. We would like the patient's sensory function to return fully before discharging her. Patient does plan on having in-home physical therapy for the first 2 weeks postoperatively She will follow up with [facility] orthopedics in 2 weeks as she has previously been scheduled With questions contact the clinic at . Total Time Total Time Spent Total Time Spent (In Minutes): 25 mins Total Time Includes: Examination of the Patient, Discharge Planning, Medication Reconciliation and Communication With Other Providers Discharge Plan Discharge Items Patient Disposition: Home - Home Health Services Reason For Visit: Right Hip Osteoarthritis Discharge Diagnosis: Right Hip Osteoarthritis Condition on Discharge: Good Activity: As commented below Lifting: None Bathing: Keep incision dry Bathing Comment: may shower tomorrow Sexual Activity: Wait until after follow-up appointment Exercise/Sports: Wait until after follow-up appointment Driving/Machine Use: No driving until cleared by administrative program specialist Weightbearing Comment: as tolerated with walker assistance Non-emergency contact: Primary Care Provider Call non-emergency contact if: you have any medication questions, your pain is not controlled, your temperature is above 101.5, your wound has increased drainage and your wound pain has increased Follow-up/Referrals: Lonnie Maya MD [Primary Care Provider] - Diet: Regular Addtl Attending Provider Instructions: Post-operative Instructions Dear Patient and Family/Friends, Before you are discharged from the hospital, it is important to know what to expect when you get home after surgery. To that end, we have created this sheet of discharge instructions which covers many commonly asked questions. Make sure you go through this sheet in its entirety with your nurse before you are discharged. Please note that we will go over the specifics of your surgery and recovery when you return for your first post-operative visit. Sincerely, Dr. Pettit Medications 1. Oxycodone 5 mg: take 1-2 tabs by mouth every 4-6 hrs as needed for pain. A prescription for 30 tablets will be sent to your pharmacy. 2. Diclofenac Sodium 75 mg: take 1 tab twice daily for 30 days post operatively for pain and inflammation relief. A prescription will be sent to your pharmacy with 1 refill. Do not use any other antiinflammatory meds while taking this medication. 3. Aspirin 81 mg: take 1 tab twice daily for post operative blood clot prevention x 30 days. Please purchase this medication. 4. Extra Strength Tylenol 500 mg: take 2 tabs every 6-8 hours as needed for supplemental pain control post operatively. Please purchase. Pain Expect to be in a fair amount of pain after surgery. Remember, our goal is not to eliminate your pain, but to make it tolerable. It is a good idea to stay ahead of your pain by taking the medications you were prescribed once you get home. Typically, the pain starts improving 3-7 days after surgery. You should start weaning off the narcotic pain medication (oxycodone, hydrocodone, hydromorphone, morphine) as soon as your pain improves. Please call our office if your pain is not adequately controlled. Ice Ice your operative site at least 5 times a day for 15-30 minutes at a time. Make sure you have a thin cloth between the ice or cooling unit and your skin to prevent rodriguez bite. This is especially important if you received a nerve block. Continue icing your operative site for the first 5-7 days after surgery, then as needed. Diet/Nausea/Vomiting Start by drinking clear liquids and eating crackers. If you can tolerate this, then you may resume your normal diet. If you feel nauseated or vomit, take Zofran/ondansetron (if prescribed). Please call our office if you have intractable nausea or vomiting, or, if after hours, you may go to the Emergency Room for help. Constipation Constipation is a common side effect of narcotic pain medication. If you have not had a bowel movement within 2 days after surgery, we recommend purchasing an over the counter laxative such as Milk of Magnesia, Dulcolax, or Miralax from a local pharmacy, and taking it as instructed. Call our clinic if any questions. Nerve block The anesthesia team sometimes places a nerve block to help with post-operative pain control. This results in significant numbness and inability to move the extremity. The nerve block usually wears off in 8-12 hours, but sometimes can last up to 24 hours. Please call our office if you are still unable to move your extremity after 24 hours, unless you received a pain pump to take home. Nerve blocks typically wear off quickly, so start taking pain medication as soon as you start feeling soreness near your surgical site. Weight bearing and Range of Motion. Do not bear any weight through your operative extremity immediately after surgery. If you had upper extremity surgery, do not lift anything with that arm. If you are in a knee brace, keep it locked in place until your follow-up. We will discuss your weight bearing, range of motion, and lifting restrictions in detail at your first post-operative appointment. Continuous Passive Motion (CPM) Machine If you were prescribed a CPM machine, it will start after your first post- operative appointment, at which time we will give you instructions on the range of motion settings and duration of treatment Physical therapy You will be given a prescription for physical therapy or occupational therapy at your first post-operative appointment. Typically, patients start therapy within 1 week of surgery Wound care and showering We will inspect your wound at your first post-operative visit, and may do a dressing change at that time. Most patients will be in a water-proof dressing that is removed 14 days after surgery. It is normal to see some dried blood on the dressing. Do not remove your dressing, paper strips or sutures yourself unless you are given permission. Showering is allowed the day after surgery. Do not scrub or remove any dressings. The wound should not be submerged underwater (i.e. in a bathtub or pool) until 4 weeks after surgery DEANNE stockings If you were given white stockings, these are to be worn at all times except to shower (on both legs) for the first 2 weeks after surgery. Driving You may not drive while taking narcotic pain medication or while in a cast, splint, sling or brace. You, the patient, need to make the final determination about when you are safe to drive, however, the earliest you may consider driving after surgery is below: Hand/Wrist/Elbow Surgery: 3 days Shoulder Surgery: 2 weeks Hip,/Knee/Ankle Surgery: 4 weeks Fracture repair: 6 weeks Return to Work Your return to work depends on what surgery was done and what type of work you do. Please bring any paperwork your employer needs completed to your first post-operative visit. Also, bring a description of your job duties, as this helps us to understand what risks you may face at work. Travel Avoid long distance travel (greater than 1 hour) in airplanes and cars for the first 6 weeks after surgery. If you must travel, you need to have a Doppler ultrasound done before you travel to rule out a blood clot in your legs. Follow-up You should have a follow-up appointment already scheduled 1-2 days after surgery. If not, please contact our office to make this appointment before you leave the hospital. When to call the office It is normal to have swelling and bruising in the limb that was operated on. This will improve with time. It is also normal to have fevers for the first 2 days after surgery. Reasons you should call your doctor include: Uncontrolled pain; Nausea, vomiting, or constipation that does not improve with medication; Fevers over 101.5, chills, sweats; Drainage or bleeding from the wound; Foul odor; Spreading areas of redness; Any other concerns Pending Studies at Discharge: No Stand-Alone Forms: [facility], Opioid Pain Management Medications and DC Order Prescriptions: New oxycodone 5 mg tablet 5 mg PO Q4H Qty: 30 RF: 0 diclofenac sodium 75 mg tablet,delayed release (DR/EC) 75 mg PO BID 30 Days Qty: 60 RF: 1 Continued polysaccharide iron complex [Ferrex 150] 150 mg iron capsule 150 mg PO BID Qty: 180 RF: 3 rizatriptan [Maxalt-ACCOUNTS PAYABLE LEAD] 10 mg tablet,disintegrating 10 mg PO ONCE PRN (Reason: migraine headache) Qty: 9 RF: 0 ascorbic acid (vitamin C) 500 mg capsule 500 mg PO QPM RF: 0 cholecalciferol (vitamin D3) 2,000 unit capsule 2,000 units PO QAM RF: 0 acetaminophen [Tylenol Extra Strength] 500 mg tablet 500 mg PO Q12H PRN (Reason: pain) RF: 0 lorazepam 1 mg Tablet 0.5 mg PO UD PRN (Reason: Anxiety) RF: 0 qbxjqpzgbx-gugytor-eabpjjdp 50-325-40 mg capsule 1 cap PO Q6 PRN (Reason: Headache) RF: 0 psyllium Packet 1 packet PO HS RF: 0 levothyroxine 88 mcg tablet 88 mcg PO QAM RF: 0 Advanced Eye Relief 1-0.3 % Drops 1 drp OPHTHALMIC (EYE) DAILY PRN (Reason: Dry Eyes) RF: 0 calcium citrate-vitamin D3 [Calcium Citrate + D] 315-200 mg-unit Tablet 1 tab PO QPM RF: 0 multivitamin Tablet 1 tab PO DAILY RF: 0 Discontinued ibuprofen [Advil] 200 mg Tablet 200 mg PO Q6H PRN (Reason: Pain) RF: 0 Discharge Orders: Discharge Order (Routine); Ordered 10/03/20 Ordered By: Edwin Haley/Other Patient Handouts: DVT Post Op Prevention, After Hip Replacement: Home Safety, Hip Replace Total Dc Admission Data Admit Date/Time: 10/01/20 09:19 Attending Provider: Jose Martin Pettit Admit Provider: Jose Martin Pettit Primary Care Provider: Lonnie Maya Other Providers: [facility],Home Healthcare Other Interventions: Discharge Summary Assessment (RN) Last Done: 10/03/20 10:36
[2020-10-02] MEDS: PSYLLIUM 58.6% POWDER PACKET PO SCH (19:52)
[2020-10-02] MEDS: SENNA 8.6 MG TAB PO SCH (21:25)
[2020-10-02] MEDS: ASCORBIC ACID 500 MG TAB PO SCH (21:25)
[2020-10-02] MEDS: CeleBREX 200 MG CAP PO SCH (21:26)
[2020-10-02] MEDS: CALCIUM 600MG + VIT D 400 IU TAB PO SCH (21:26)
[2020-10-03] MEDS: ACETAMINOPHEN 500 MG TAB PO SCH (05:53)
[2020-10-03] MEDS: LEVOTHYROXINE SODIUM 88 MCG TABLET PO SCH (05:53)
[2020-10-03] MEDS: MULTIVITAMIN TAB PO SCH (08:37)
[2020-10-03] MEDS: DOCUSATE SODIUM 100 MG CAP PO SCH (08:37)
[2020-10-03] MEDS: IRON POLYSACCHARIDE COMPLEX 150 MG CAPSULE PO SCH (08:37)
[2020-10-03] MEDS: ASPIRIN 81 MG ECTAB PO SCH (08:37)
[2020-10-03] MEDS: Scopolamine CHECK PATCH PLACEMENT SCH (08:38)
[2020-10-03] MEDS: CeleBREX 200 MG CAP PO SCH (08:38)
[2020-10-03] MEDS: CHOLECALCIFEROL 1,000 UNITS 25 MCG TAB PO SCH (08:38)
--- NOTE | 2020-10-03 09:32 | Orthopedic Progress Note ---
Date of Service October 03, 2020 Assessment & Plan (1) Status post total hip replacement, right: Patient was seen in her room. She feels ready for discharge to home. She will participate in PT/OT this morning and then be discharged. Follow-up in the office as scheduled. Prescriptions for pain medication have already been sent to her pharmacy. Written discharge instructions have been provided. Patient was seen in conjunction with Dr. Rodriguez, who also evaluated the patient this morning. Admission and Anticipated Discharge Date Admission Date: October 01, 2020 Subjective Patient is seen in her room this morning. States she feels ready to go home. She states than tingling and lack of sensation in her right thigh has improved. It is not back to entirely normal, but is much better. No chest pain, shortness of breath, nausea, or vomiting. She has been out of bed. No other complaints. Physical Exam Physical Exam: General: Well-developed, well-nourished, middle-aged female, in no acute distress. Laying in bed. Awake and conversive. Skin: Warm and dry with good turgor. Right hip has a Silverlon dressing in place. No active bleeding. There is no soiling. Expected postoperative ecchymosis and edema in the right leg. Musculoskeletal: Patient has intact motor function to her lower extremities. Strength is 5/5 for resisted ankle dorsiflexion and plantarflexion. Excellent resisted external rotation. Neurologic: Gross sensation is intact across all aspects of the right leg by soft touch. She describes a altered sensation across the anterior thigh compared to the left leg, but sensation is clearly intact. Peripheral pulses are 2+. Results & Data ([facility]) Vital Signs (Past 12 Hours) Vital Signs Temp Pulse Resp BP Pulse Ox 10/03/20 07:22 36.8 C 72 16 121/69 99 10/02/20 23:09 37.2 C 84 20 126/69 98 10/02/20 22:57 37.1 C 84 20 122/68 97
== END 2020-10-03 12:01 | disposition home health service (06) ==
LOC: ASU 05:13 → 3E 05:13